=== PATIENT | male | born 1945 | race Caucasian/White ===

== ENCOUNTER 2018-06-07 12:34 | Emergency (ER) | payer OTHER ==
[2018-06-07] MEDS ORDERED: CYCLOBENZAPRINE 10 MG TAB ONE (13:54)
[2018-06-07] MEDS ORDERED: HYDROCODONE/APAP 5/325 MG TAB ONE (13:54)
--- NOTE | 2018-06-07 14:23 | RAD REPORT ---
EXAM DESCRIPTION: CT - Head C Spine Cap Wo Con - 06/07/2018 2:02 pm CLINICAL HISTORY: Fall 5 days earlier, head, neck, chest and abdomen pain, pain primarily lower back and left hip COMPARISON: None. TECHNIQUE: Axial [address] head images were obtained. Axial [address] cervical spine images were obtain ed with sagittal and coronal reconstruction images reviewed. Axial 5 mm images of the chest, abdomen and pelvis were obtained. All CT scans are performed using dose optimization technique as appropriate and may include automated exposure control or mA/KV adjustment according to patient size. FINDINGS: No epidural or subdural hematoma. Punctate curvilinear focus in the deep margin of the lef t central or precentral sulcus is identified. This is potentially a small amount of subarachnoid hemo rrhage as a remnant of the fall. As a finding 5 days after injury, this is not regarded as significan t. No cortical edema or sulcal effacement. No midline shift. No abnormal extra-axial fluid collection . Mastoid air cells and paranasal sinuses are clear. No skull fracture. Atrophy and chronic ischemic changes are minimal. Ventricles are in proportion. Cervical bodies are normal in height and alignment. No fracture or acute bone finding.C5-6 and C6-7 d isc space narrowing and endplate spurring changes are present. Significant facet degenerative change and uncovertebral joint hypertrophy noted. There is bilateral mild foraminal stenosis at C2-3 and C3- 4. Advanced degenerative change cause significant bilateral foraminal stenosis at C4-5 and C5-6. Mode rate stenosis of the foramina at C6-7. Central spinal stenosis present at C5-6.No prevertebral soft t issue thickening or paraspinal mass.Central canal detail is inherently limited on CT imaging. CT chest shows no pneumothorax, pulmonary contusion or pleural fluid collection. No mediastinal hem atoma and the aorta and pulmonary arteries are unremarkable. No chest will mass or abnormal axillary finding. No displaced rib fracture or other significant bony finding. CT abdomen and pelvis show no injury to solid abdominal viscera. Gallbladder and biliary tree are unr emarkable. No bowel injury or significant finding. No free air, free fluid or abnormal stranding. No hernia, mass or bulky lymphadenopathy. No urinary bladder abnormality. Incidental note made of renal cysts. An enlarged lobulated prostate gland is present. Prominent endplate spurring changes seen in the mid and lower thoracic spine with bridging ossificati on. No fracture or acute component. T5-6 and T6-7 disc space narrowing seen. Patient is a very slight loss in height in the superior endplate L2. Imaging findings favor this to be chronic. Patient has d egenerative change throughout the thoracic and lumbar spine. Spinal stenosis at L4-5 is evident. IMPRESSION: No epidural or subdural hematoma. No clinically relevant intracranial hemorrhage. Atroph y and chronic ischemic changes are minimal. Prominent cervical spine degenerative change present with multilevel foraminal stenosis and central s chandler stenosis at C5-6. No pneumothorax, pulmonary contusion or acute CT chest finding. No acute traumatic injury to the soft tissues of the abdomen and pelvis. Minimal loss in height superior endplate L2. This is probably chronic. The patient has extensive bony degenerative change. Given the patient pain pattern, followup MR imaging could be performed to evalu ate for any active marrow in the L2 body.
--- NOTE | 2018-06-07 14:47 | ER ---
Nurse's Notes [facility] Name: Mani Garibay Age: 73 yrs Sex: Male : 1945 Arrival Date: 06/07/2018 Time: 12:36 Bed 30 Private MD: Alvin Whalen Diagnosis: Fall (on) (from) other stairs and steps;Chest wall contusion;Pain in left hip;Low back pain Presentation: 06/07 12:43 Presenting complaint: Patient states: Fell 12 ft off of ladder 5 days ago. Denies LOC. aj Reports pain to left hip and lower back. Bruise to right chest. Ambulated in to triage with limp. Transition of care: patient was not received from another setting of care. Onset of symptoms was June 02, 2018. Risk Assessment: Do you want to hurt yourself or someone else? Patient reports no desire to harm self or others. Initial Sepsis Screen: Does the patient meet any 2 criteria? No. Patient's initial sepsis screen is negative. Does the patient have a suspected source of infection? No. Patient's initial sepsis screen is negative. Care prior to arrival: None. 12:43 Method Of Arrival: Ambulatory 12:43 Acuity: KALEY 3 aj Triage Assessment: 12:46 General: Appears in no apparent distress. comfortable, Behavior is calm, cooperative, aj appropriate for age. Pain: Complains of pain in low back area, mid back area and left hip. Neuro: Level of Consciousness is awake, alert, obeys commands, Oriented to person, place, time, situation, Appropriate for age. Respiratory: Airway is patent Respiratory effort is even, unlabored, Respiratory pattern is regular, symmetrical. Derm: Skin is intact, is healthy with good turgor, Skin is pink, warm \T\ dry. normal. Historical: - Allergies: 12:46 No Known Allergies; aj - Home Meds: 12:46 gabapentin oral oral [Active]; amlodipine oral [Active]; atorvastatin oral oral aj [Active]; Atenolol Oral [Active]; losartan oral oral [Active]; Glimepiride Oral [Active]; Insulin: Novolin R Sub-Q [Active]; - PMHx: 12:46 Diabetes - IDDM; Hyperlipidemia; Hypertension; aj - PSHx: 12:46 Appendectomy; aj - Immunization history:: Adult Immunizations up to date. - Social history:: Smoking status: Patient/guardian denies using tobacco. - Ebola Screening: : Patient negative for fever greater than or equal to 101.5 degrees Fahrenheit, and additional compatible Ebola Virus Disease symptoms Patient denies exposure to infectious person Patient denies travel to an Ebola-affected area in the 21 days before illness onset No symptoms or risks identified at this time. Screenin:08 Abuse screen: Denies threats or abuse. Denies injuries from another. Nutritional ed1 screening: No deficits noted. Tuberculosis screening: No symptoms or risk factors identified. Fall Risk None identified. Assessment: 13:08 General: Appears uncomfortable, Behavior is calm, cooperative. Pain: Complains of pain ed1 in left hip and low back area Pain does not radiate. Pain currently is 6 out of 10 on a pain scale. Quality of pain is described as aching, throbbing, Pain began 2-3 days ago. Is continuous, Aggravated by increased activity, weight bearing. Neuro: Level of Consciousness is awake, alert, obeys commands, Oriented to person, place, time, situation. Cardiovascular: Denies chest pain, Heart tones S1 S2 present. Respiratory: Airway is patent Respiratory effort is even, unlabored, Respiratory pattern is regular, symmetrical, Breath sounds are clear bilaterally. GI: No signs and/or symptoms were reported involving the gastrointestinal system. : No signs and/or symptoms were reported regarding the genitourinary system. EENT: No signs and/or symptoms were reported regarding the EENT system. Derm: Skin is pink, warm \T\ dry. Musculoskeletal: Circulation, motion, and sensation intact. Capillary refill < 3 seconds, in bilateral fingers. Range of motion: intact in all extremities, Swelling absent Reports pain in left hip and low back area. 13:15 General: The previous assessment is accurate. Call light remains within reach. . ss 13:37 Reassessment: Patient appears in no apparent distress at this time. No changes from ed1 previously documented assessment. Patient and/or family updated on plan of care and expected duration. Pain level reassessed. Patient is alert, oriented x 3, equal unlabored respirations, skin warm/dry/pink. Patient states symptoms have not improved. Vital Signs: 12:46 BP 164 / 86; Pulse 69; Resp 19; Temp 97.9; Pulse Ox 98% on R/A; Weight 99.79 kg; Height aj 6 ft. 0 in. (182.88 cm); 13:37 BP 158 / 74; Pulse 65; Resp 17; Temp 98.1(O); Pulse Ox 99% on R/A; Pain 6/10; ed1 14:48 BP 160 / 85; Pulse 51; Pulse Ox 98% on R/A; rv 12:46 Body Mass Index 29.84 (99.79 kg, 182.88 cm) aj ED Course: 12:36 Patient arrived in ED. as 12:36 Alvin Whalen MD is Private Physician. as 12:45 Triage completed. aj 12:46 Arm band placed on left wrist. Patient placed in an exam room. aj 13:06 Lien Nicholas LVN is Primary Nurse. ed1 13:08 Awaiting ED provider evaluation. ed1 13:08 Patient has correct armband on for positive identification. Placed in gown. Bed in low ed1 position. Call light in reach. Side rails up X 1. Adult w/ patient. Warm blanket given. 13:34 Lauren Owusu FNP-C is PHCP. snw 13:34 Ronnie Walden MD is Attending Physician. snw 14:03 CT Traumagram (Head C Spine CAP wo con) In Process Unspecified. EDSD 14:44 Alvin Whalen MD is Referral Physician. snw 14:47 Report given to KRISTA Alvarez. ed1 14:53 No provider procedures requiring assistance completed. Patient did not have IV access rv during this emergency room visit. Administered Medications: 13:52 Drug: [place] 5 mg-325 mg 1 tabs Route: PO; ed1 14:54 Follow up: Response: No adverse reaction; Pain is decreased rv 13:52 Drug: Flexeril 10 mg Route: PO; ed1 14:54 Follow up: Response: No adverse reaction; Pain is decreased rv Outcome: 14:46 Discharge ordered by . snw 14:53 Discharged to home ambulatory. rv 14:53 Condition: improved 14:53 Discharge instructions given to patient, Instructed on discharge instructions, follow up and referral plans. medication usage, Prescriptions given X 2. 14:55 Patient left the ED. rv Signatures: Dispatcher [employer] Karen Pabon RN RN Lauren Cash, SUPERVISING PRODUCER-C SUPERVISING PRODUCER-Csnw Shannon Munson Shelby, RN RN ss Lien Nicholas, MANAGER MARKETING COMMUNICATIONS MANAGER MARKETING COMMUNICATIONS ed1 Hawk Bonilla, RN RN rv
--- NOTE | 2018-06-07 14:47 | EDPHYS ---
Physician Documentation [facility] Name: Mani Garibay Age: 73 yrs Sex: Male : 1945 Arrival Date: 06/07/2018 Time: 12:36 Bed 30 Private MD: Alvin Whalen ED Physician Ronnie Walden HPI: 06/07 13:56 This 73 yrs old Male presents to ER via Ambulatory with complaints of Hip snw Pain. 13:56 The patient or guardian reports an injury, pain. that occurred outdoors, sustained from snw a fall, from 12ft ladder, There is no obvious deformity, The patient is able to self ambulate. The patient is able to bear partial body weight. There is no radiation of the patient's discomfort. The complaints affect the abrasion to occiput, ecchymosis to right breast area, pain to left hip and lower back. Onset: The symptoms/episode began/occurred suddenly, 6 day(s) ago, and became worse and became persistent. Associated signs and symptoms: Loss of consciousness: the patient experienced no loss of consciousness. Severity of symptoms: At their worst the symptoms were moderate. The patient has not experienced similar symptoms in the past. It is unknown whether or not the patient has recently seen a physician. Historical: - Allergies: 12:46 No Known Allergies; aj - Home Meds: 12:46 gabapentin oral oral [Active]; amlodipine oral [Active]; atorvastatin oral oral aj [Active]; Atenolol Oral [Active]; losartan oral oral [Active]; Glimepiride Oral [Active]; Insulin: Novolin R Sub-Q [Active]; - PMHx: 12:46 Diabetes - IDDM; Hyperlipidemia; Hypertension; aj - PSHx: 12:46 Appendectomy; aj - Immunization history:: Adult Immunizations up to date. - Social history:: Smoking status: Patient/guardian denies using tobacco. - Ebola Screening: : Patient negative for fever greater than or equal to 101.5 degrees Fahrenheit, and additional compatible Ebola Virus Disease symptoms Patient denies exposure to infectious person Patient denies travel to an Ebola-affected area in the 21 days before illness onset No symptoms or risks identified at this time. ROS: 13:52 Constitutional: Negative for fever, chills, and weight loss, Eyes: Negative for injury, snw pain, redness, and discharge, ENT: Negative for injury, pain, and discharge, Neck: Negative for injury, pain, and swelling, Cardiovascular: Negative for chest pain, palpitations, and edema, Respiratory: Negative for shortness of breath, cough, wheezing, and pleuritic chest pain, Abdomen/GI: Negative for abdominal pain, nausea, vomiting, diarrhea, and constipation, Back: Negative for injury and pain, : Negative for injury, bleeding, discharge, and swelling, Neuro: Negative for headache, weakness, numbness, tingling, and seizure. 13:52 MS/extremity: Positive for injury or acute deformity, contusion, ecchymosis, of the right breast, pain to left hip. Exam: 13:48 Constitutional: This is a well developed, well nourished patient who is awake, alert, snw and in no acute distress. 13:48 Eyes: Pupils equal round and reactive to light, extra-ocular motions intact. Lids and lashes normal. Conjunctiva and sclera are non-icteric and not injected. Cornea within normal limits. Periorbital areas with no swelling, redness, or edema. ENT: Nares patent. No nasal discharge, no septal abnormalities noted. Tympanic membranes are normal and external auditory canals are clear. Oropharynx with no redness, swelling, or masses, exudates, or evidence of obstruction, uvula midline. Mucous membranes moist. Neck: Trachea midline, no thyromegaly or masses palpated, and no cervical lymphadenopathy. Supple, full range of motion without nuchal rigidity, or vertebral point tenderness. No Meningismus. Chest/axilla: Normal chest wall appearance and motion. Nontender with no deformity. No lesions are appreciated. Cardiovascular: Regular rate and rhythm with a normal S1 and S2. No gallops, murmurs, or rubs. Normal PMI, no JVD. No pulse deficits. Respiratory: Lungs have equal breath sounds bilaterally, clear to auscultation and percussion. No rales, rhonchi or wheezes noted. No increased work of breathing, no retractions or nasal flaring. Abdomen/GI: Soft, non-tender, with normal bowel sounds. No distension or tympany. No guarding or rebound. No evidence of tenderness throughout. Back: No spinal tenderness. No costovertebral tenderness. Full range of motion. 13:48 Neuro: Awake and alert, GCS 15, oriented to person, place, time, and situation. Cranial nerves II-XII grossly intact. Motor strength 5/5 in all extremities. Sensory grossly intact. Cerebellar exam normal. Normal gait. 13:48 Head/face: Noted is a laceration(s), that is linear, 2 cm(s), of the posterior occiput. 13:48 Musculoskeletal/extremity: ROM: no acute changes, Circulation is intact in all extremities. Sensation intact. Weight bearing: able to fully bear weight, pain to left hip on ambulation/wt bearing. 13:48 Skin: injury, contusion(s), that are deep, of the right breast. Vital Signs: 12:46 BP 164 / 86; Pulse 69; Resp 19; Temp 97.9; Pulse Ox 98% on R/A; Weight 99.79 kg; Height aj 6 ft. 0 in. (182.88 cm); 13:37 BP 158 / 74; Pulse 65; Resp 17; Temp 98.1(O); Pulse Ox 99% on R/A; Pain 6/10; ed1 14:48 BP 160 / 85; Pulse 51; Pulse Ox 98% on R/A; rv 12:46 Body Mass Index 29.84 (99.79 kg, 182.88 cm) aj MDM: 13:37 Patient medically screened. snw 14:49 Data reviewed: vital signs, nurses notes. Data interpreted: Pulse oximetry: on room air snw is 99 %. Interpretation: normal. Counseling: I had a detailed discussion with the patient and/or guardian regarding: the historical points, exam findings, and any diagnostic results supporting the discharge/admit diagnosis, the presence of at least one elevated blood pressure reading (>120/80) during this emergency department visit, radiology results, the need for outpatient follow up, to return to the emergency department if symptoms worsen or persist or if there are any questions or concerns that arise at home. Special discussion: Based on the patient's history, exam, and Dx evaluation, there is no indication for emergent intervention or inpatient Tx. It is understood by the patient/guardian that if the Sx's persist or worsen they need to return immediately for re-evaluation. Based on the patient's history, exam and DX evaluation, there is no indication for emergent intervention or inpatient TX. It is understood by the patient/guardian that if the SXs persist or worsen they need to return immediately for re-evaluation. Based on the history and exam findings, there is no indication for further emergent testing or inpatient evaluation. I discussed with the patient/guardian the need to see the primary care provider for further evaluation of the symptoms. 15:10 ED course: Discussed CT findings and plan of care with Dr. Walden. Agrees with plan. snw 06/07 13:36 Order name: CT Traumagram (Head C Spine CAP wo con); Complete Time: 14:33 snw Administered Medications: 13:52 Drug: [place] 5 mg-325 mg 1 tabs Route: PO; ed1 14:54 Follow up: Response: No adverse reaction; Pain is decreased rv 13:52 Drug: Flexeril 10 mg Route: PO; ed1 14:54 Follow up: Response: No adverse reaction; Pain is decreased rv Disposition: 16:18 Co-signature as Attending Physician, Ronnie Walden MD I agree with the assessment and kdr plan of care. Disposition: 06/07/18 14:46 Discharged to Home. Impression: Fall (on) (from) other stairs and steps, Chest wall contusion, Pain in left hip, Low back pain. - Condition is Stable. - Discharge Instructions: Back Pain, Adult, Fall Prevention in the Home, Hypertension, Musculoskeletal Pain, Hip Pain, Cryotherapy, Rehydration, Adult, Heat Therapy. - Prescriptions for Tylenol- Codeine #3 300-30 mg Oral Tablet - take 2 tablets by ORAL route every 6 hours As needed; 20 tablet. orphenadrine citrate 100 mg Oral Tablet Sustained Release - take 1 tablet by ORAL route 2 times per day As needed; 20 tablet. - Medication Reconciliation Form, Thank You Letter, Antibiotic Education, Prescription Opioid Use form. - Follow up: Alvin Whalen MD; When: 2 - 3 days; Reason: Recheck today's complaints, Continuance of care, Re-evaluation by your physician. Follow up: Emergency Department; When: As needed; Reason: Worsening of condition. Signatures: Dispatcher [employer] EDMS Karen Guthrie RN RN aj Rittger, Kevin, MD MD kdr Therrien, Shelly, CARTON CATCHER-C CARTON CATCHER-Csnw Lien Nicholas, POINT OF SALE ASSOCIATE POINT OF SALE ASSOCIATE ed1 Hawk Bonilla, RN RN rv Corrections: (The following items were deleted from the chart) 14:55 14:46 06/07/2018 14:46 Discharged to Home. Impression: Fall (on) (from) other stairs rv and steps; Chest wall contusion; Pain in left hip; Low back pain. Condition is Stable. Forms are Medication Reconciliation Form, Thank You Letter, Antibiotic Education, Prescription Opioid Use. Follow up: Alvin Whalen; When: 2 - 3 days; Reason: Recheck today's complaints, Continuance of care, Re-evaluation by your physician. Follow up: Emergency Department; When: As needed; Reason: Worsening of condition. snw
== END 2018-06-07 14:55 | disposition home or self-care (01) ==
LOC: ER 12:34
DX: S20.211A Contusion of right front wall of thorax, initial encounter (principal); M54.5 Low back pain; W11.XXXA Fall on and from ladder, initial encounter; Y93.89 Activity, other specified; Y92.89 Other specified places as the place of occurrence of the external cause; Z79.4 Long term (current) use of insulin; I10 Essential (primary) hypertension; E78.5 Hyperlipidemia, unspecified; E11.9 Type 2 diabetes mellitus without complications
CPT/HCPCS: 70450; 71250; 72125; 99283

== ENCOUNTER 2019-09-03 06:49 | Emergency (ER) | payer OTHER ==
[2019-09-03] MEDS ORDERED: KETOROLAC 30 MG/ML INJ ONE (07:51)
[2019-09-03] MEDS ORDERED: NA CHLORIDE 0.9% 500 ML ONE (07:52)
[2019-09-03 08:07] LABS: Basophils % 0.6 % (0-1.3); Hematocrit 32.7 % (39.6-49.0); Lymphocytes % 5.9 % (15.3-44.8); MPV 7.8 fL (7.6-11.3); RBC Red Blood Cell Count 3.69 M/uL (4.33-5.43)
[2019-09-03 08:28] LABS: Albumin 2.5 g/dL (3.4-5.0); Bilirubin Direct 0.2 mg/dL (0-0.2); Bilirubin Total 0.5 mg/dL (0.2-1.0); Potassium 4.9 mmol/L (3.5-5.1); Protein, Total 7.6 g/dL (6.4-8.2)
--- NOTE | 2019-09-03 08:37 | RAD REPORT ---
EXAM DESCRIPTION: US - Scrotum Testicles - 09/03/2019 8:10 am CLINICAL HISTORY: Right scrotal pain and swelling COMPARISON: No comparisons FINDINGS: The right testicle 4.0 x 3.3 x 2.7 cm. No intratesticular masses or evidence of testicular torsion. The left testicle 3.0 x 2.8 x 2.4 cm. No intratesticular masses or evidence of testicular torsion. Right epididymis appears enlarged with increase right-sided epididymal blood flow. Left epididymis is unremarkable. No pathologic fluid collections. IMPRESSION: Right epididymitis is suspected.
[2019-09-03] MEDS ORDERED: levoFLOXacin 500 MG TAB ONE (08:39)
--- NOTE | 2019-09-03 08:53 | ER ---
Nurse's Notes [facility] Name: Mani Garibay Age: 74 yrs Sex: Male : 1945 Arrival Date: 09/03/2019 Time: 06:50 Bed 15 Private MD: Diagnosis: Epididymitis Presentation: 09/03 07:10 Presenting complaint: states: pt c/o pain to lower backafter falling off a ladder ch one year ago. pt has appt with pain management Friday. constipation for four weeks. took a stool sophener and it "exploded out of him" yesterday. since then his R testicle has been swollen and painful. Also he isnt peeing. its just little at a time. Transition of care: patient was not received from another setting of care. Onset of symptoms was September 02, 2019 at 08:00. Risk Assessment: Do you want to hurt yourself or someone else? Patient reports no desire to harm self or others. Initial Sepsis Screen: Does the patient meet any 2 criteria? No. Patient's initial sepsis screen is negative. Does the patient have a suspected source of infection? No. Patient's initial sepsis screen is negative. Care prior to arrival: None. 07:10 Method Of Arrival: Wheelchair ch 07:10 Acuity: KALEY 3 ch Triage Assessment: 07:15 General: Appears in no apparent distress. uncomfortable, Behavior is calm, cooperative, ch appropriate for age. Pain: Complains of pain in back and right testicle Pain currently is 5 out of 10 on a pain scale. Pain began gradually, 1 day ago. 07:58 Neuro: No deficits noted. Respiratory: Airway is patent Respiratory effort is even, ch unlabored, Breath sounds are clear bilaterally. GI: Abdomen is round non-distended, Bowel sounds present X 4 quads. Abd is soft and non tender X 4 quads. Reports bloating, constipation. : Swelling noted on scrotum pt R testicle is 2-3 times larger than his left. skin color is the same, R testicle is sore. Reports decrease in urination. Derm: Skin is intact, Skin is pink, warm \\T\\ dry. Musculoskeletal: Circulation, motion, and sensation intact. Capillary refill < 3 seconds, in bilateral fingers. toes. Range of motion: intact in all extremities, Reports back pain since fall off ladder. lower back "always hurts.". Historical: - Allergies: 07:15 No Known Allergies; ch - Home Meds: 07:15 montelukast 10 mg oral tab 1 tab once daily [Active]; cetirizine 10 mg oral tab 1 tab ch once daily [Active]; atorvastatin 40 mg oral tab 1 tab once daily [Active]; gabapentin 600 mg oral tab 1 tab 3 times per day [Active]; omeprazole 40 mg Oral cpDR 1 cap once daily [Active]; amlodipine 10 mg tab 1 tab once daily [Active]; 07:18 hydralazine 50 mg Oral tab 1 tab 2 times per day [Active]; losartan-hydrochlorothiazide ch 100-12.5 mg oral tab 1 tab once daily [Active]; atenolol 100 mg Oral tab 1 tab once daily [Active]; Humulin 70/30 100 unit/mL (70-30) Sub-Q susp [Active]; - 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 - Social history:: Smoking status: Patient/guardian denies using tobacco. - Ebola Screening: : Patient negative for fever greater than or equal to 101.5 degrees Fahrenheit, and additional compatible Ebola Virus Disease symptoms Patient denies exposure to infectious person Patient denies travel to an Ebola-affected area in the 21 days before illness onset No symptoms or risks identified at this time. Screenin:03 Abuse screen: Denies threats or abuse. Denies injuries from another. Nutritional ch screening: No deficits noted. Tuberculosis screening: No symptoms or risk factors identified. Fall Risk None identified. Assessment: 08:02 Reassessment: Patient appears in no apparent distress at this time. No changes from previously documented assessment. Patient and/or family updated on plan of care and expected duration. Pain level reassessed. Patient is alert, oriented x 3, equal unlabored respirations, skin warm/dry/pink. 08:16 Reassessment: pt oob to restroom, ambulatory, gait steady. pt states he feels a little ch better but not much. awaiting results now. 08:44 Reassessment: Patient appears in no apparent distress at this time. Patient and/or ch family updated on plan of care and expected duration. Pain level reassessed. Patient is alert, oriented x 3, equal unlabored respirations, skin warm/dry/pink. Patient denies pain at this time. Neuro: No deficits noted. Neuro: Level of Consciousness is awake, alert, obeys commands, Oriented to person, place, time, situation, Specialty Department Supervisor are equal bilaterally Moves all extremities. Full function Gait is steady, Speech is normal, Facial symmetry appears normal, Facial symmetry: tongue is midline, Pupils are PERRLA, Denies weakness blurred vision dizziness, difficulty swallowing, paresthesias numbness headache photophobia diplopia. Respiratory: No deficits noted. 09:01 Reassessment: Patient appears in no apparent distress at this time. Patient and/or ch family updated on plan of care and expected duration. Pain level reassessed. Patient is alert, oriented x 3, equal unlabored respirations, skin warm/dry/pink. Patient states feeling better. Patient states symptoms have improved. Vital Signs: 07:20 BP 119 / 78; Pulse 84; Resp 16; Temp 99.1(O); Pulse Ox 97% on R/A; Weight 99.79 kg; ch Height 6 ft. (182.88 cm); Pain 5/10; 08:03 BP 106 / 72; Pulse 64; Resp 17; Temp 99.2(O); Pulse Ox 100% on R/A; ch 08:44 BP 112 / 62; Pulse 61; Resp 17; Temp 99(O); Pulse Ox 99% on R/A; Pain 4/10; ch 07:20 Body Mass Index 29.84 (99.79 kg, 182.88 cm) ED Course: 06:50 Patient arrived in ED. ds1 06:58 Tanya Mays, KRISTA is Primary Nurse. ch 07:09 Ronnie Walden MD is Attending Physician. kdr 07:13 Triage completed. 07:20 Arm band placed on left wrist. Patient placed in an exam room, on a stretcher, on pulse oximetry. 07:50 No provider procedures requiring assistance completed. Inserted saline lock: 18 gauge ch in right forearm, using aseptic technique. Blood collected. Missed attempt(s): 18 gauge in right forearm. Bleeding controlled, band aid applied, catheter tip intact. 07:56 Basic Metabolic Panel Sent. ch 07:56 CBC with Diff Sent. ch 07:56 Creatinine for Radiology Sent. ch 07:56 Hepatic Function Sent. ch 07:56 Lipase Sent. ch 08:03 Patient has correct armband on for positive identification. Bed in low position. Call light in reach. Side rails up X 1. Adult w/ patient. Pulse ox on. NIBP on. Door closed. Noise minimized. Visitors limited. Warm blanket given. Pillow given. Verbal reassurance given. 08:04 No apparent distress. Resting quietly. US at bedside now. ch 08:10 US Scrotum Testicles In Process Unspecified. EDMS 09:02 IV discontinued, intact, bleeding controlled, No redness/swelling at site. Pressure ch dressing applied. Administered Medications: 07:57 Drug: NS 0.9% 500 ml Route: IV; Rate: bolus; Site: right forearm; ch 08:17 Follow up: Response: No adverse reaction; IV Status: Completed infusion 07:58 Drug: TORadol - Ketorolac 15 mg Route: IVP; Site: right forearm; ch 08:17 Follow up: Response: No adverse reaction; Pain is decreased ch 08:45 Drug: LevaQUIN 500 mg Route: PO; Outcome: 08:53 Discharge ordered by . [facility] 09:01 Discharged to home ambulatory, with family. 09:01 Condition: stable 09:01 Discharge instructions given to patient, family, Instructed on discharge instructions, follow up and referral plans. medication usage, Demonstrated understanding of instructions, follow-up care, medications, Prescriptions given X 1. 09:02 Patient left the ED. Signatures: Dispatcher [employer] EDUT Tanya Mays, RN RN Ronnie Walden MD MD [facility] Lurdes Lopez ds1 Corrections: (The following items were deleted from the chart) 08:01 07:58 General: Appears in no apparent distress. uncomfortable, Behavior is calm, ch cooperative, appropriate for age, ch 08:01 07:58 Pain: Complains of pain in back and right testicle Pain currently is 5 out of 10 ch on a pain scale. Pain began gradually, 1 day ago.
--- NOTE | 2019-09-03 08:53 | EDPHYS ---
Physician Documentation [facility] Name: Mani Garibay Age: 74 yrs Sex: Male : 1945 Arrival Date: 09/03/2019 Time: 06:50 Bed 15 Private MD: ED Physician Ronnie Walden HPI: 09/03 07:50 This 74 yrs old Male presents to ER via Wheelchair with complaints of kdr Testicular Swelling, Back Pain, Constipation. 07:50 The patient presents with scrotal pain, of the right side, in the area of the kdr epidydimis, with swelling, without erythema, swelling, that is moderate, of the right testicle, tenderness, urinary symptoms, dysuria, urinary frequency. Onset: The symptoms/episode began/occurred The patient has felt poorly over the last few days. Two days ago, he flet hot and had shaking chills and rigors which have since resolved. Since then he has had increased pain and swelling to the right testicle. He has also had constipation - took a stool softener and had a large "explosive" BM. Modifying factors: The symptoms are alleviated by nothing, the symptoms are aggravated by nothing. Severity of symptoms: At their worst the symptoms were mild, in the emergency department the symptoms are unchanged. The patient has not experienced similar symptoms in the past. The patient has not recently seen a physician. Historical: - Allergies: 07:15 No Known Allergies; ch - Home Meds: 07:15 montelukast 10 mg oral tab 1 tab once daily [Active]; cetirizine 10 mg oral tab 1 tab ch once daily [Active]; atorvastatin 40 mg oral tab 1 tab once daily [Active]; gabapentin 600 mg oral tab 1 tab 3 times per day [Active]; omeprazole 40 mg Oral cpDR 1 cap once daily [Active]; amlodipine 10 mg tab 1 tab once daily [Active]; 07:18 hydralazine 50 mg Oral tab 1 tab 2 times per day [Active]; losartan-hydrochlorothiazide ch 100-12.5 mg oral tab 1 tab once daily [Active]; atenolol 100 mg Oral tab 1 tab once daily [Active]; Humulin 70/30 100 unit/mL (70-30) Sub-Q susp [Active]; - 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 - Social history:: Smoking status: Patient/guardian denies using tobacco. - Ebola Screening: : Patient negative for fever greater than or equal to 101.5 degrees Fahrenheit, and additional compatible Ebola Virus Disease symptoms Patient denies exposure to infectious person Patient denies travel to an Ebola-affected area in the 21 days before illness onset No symptoms or risks identified at this time. ROS: 07:50 Constitutional: Negative for fever, chills, and weight loss, Eyes: Negative for injury, kdr pain, redness, and discharge, Neck: Negative for injury, pain, and swelling, Cardiovascular: Negative for chest pain, palpitations, and edema, Respiratory: Negative for shortness of breath, cough, wheezing, and pleuritic chest pain, Abdomen/GI: Negative for abdominal pain, nausea, vomiting, diarrhea, and constipation, Back: Negative for injury and pain, MS/Extremity: Negative for injury and deformity, Skin: Negative for injury, rash, and discoloration, Neuro: Negative for headache, weakness, numbness, tingling, and seizure activity. Psych: Negative for depression, anxiety, suicide ideation, homicidal ideation, and hallucinations, Allergy/Immunology: Negative for hives, rash, and allergies, Endocrine: Negative for neck swelling, polydipsia, polyuria, polyphagia, and marked weight changes, Hematologic/Lymphatic: Negative for swollen nodes, abnormal bleeding, and unusual bruising. 07:50 : Positive for urinary symptoms, difficulty urinating, testicular pain Negative for hematuria, flank pain, bladder incontinence, foul smelling urine, penile discharge. Exam: 07:50 Constitutional: This is a well developed, well nourished patient who is awake, alert, kdr and in no acute distress. Head/Face: Normocephalic, atraumatic. Eyes: Pupils equal round and reactive to light, extra-ocular motions intact. Lids and lashes normal. Conjunctiva and sclera are non-icteric and not injected. Cornea within normal limits. Periorbital areas with no swelling, redness, or edema. Neck: Trachea midline, no thyromegaly or masses palpated, and no cervical lymphadenopathy. Supple, full range of motion without nuchal rigidity, or vertebral point tenderness. No Meningismus. Chest/axilla: Normal chest wall appearance and motion. Nontender with no deformity. No lesions are appreciated. Cardiovascular: Regular rate and rhythm with a normal S1 and S2. No gallops, murmurs, or rubs. Normal PMI, no JVD. No pulse deficits. Respiratory: Lungs have equal breath sounds bilaterally, clear to auscultation and percussion. No rales, rhonchi or wheezes noted. No increased work of breathing, no retractions or nasal flaring. Abdomen/GI: Soft, non-tender, with normal bowel sounds. No distension or tympany. No guarding or rebound. No evidence of tenderness throughout. Back: No spinal tenderness. No costovertebral tenderness. Full range of motion. Skin: Warm, dry with normal turgor. Normal color with no rashes, no lesions, and no evidence of cellulitis. MS/ Extremity: Pulses equal, no cyanosis. Neurovascular intact. Full, normal range of motion. Neuro: Awake and alert, GCS 15, oriented to person, place, time, and situation. Cranial nerves II-XII grossly intact. Motor strength 5/5 in all extremities. Sensory grossly intact. Cerebellar exam normal. Normal gait. Psych: Awake, alert, with orientation to person, place and time. Behavior, mood, and affect are within normal limits. 07:50 : CVA tenderness, is absent, Male external genitalia: swelling, of the right testicle is noted, scrotal, testicle, of the epididymis area, that is mild, tenderness, of the epididymis area, that is mild. Vital Signs: 07:20 BP 119 / 78; Pulse 84; Resp 16; Temp 99.1(O); Pulse Ox 97% on R/A; Weight 99.79 kg; ch Height 6 ft. (182.88 cm); Pain 5/10; 08:03 BP 106 / 72; Pulse 64; Resp 17; Temp 99.2(O); Pulse Ox 100% on R/A; ch 08:44 BP 112 / 62; Pulse 61; Resp 17; Temp 99(O); Pulse Ox 99% on R/A; Pain 4/10; ch 07:20 Body Mass Index 29.84 (99.79 kg, 182.88 cm) ch MDM: 08:53 Patient medically screened. kdr 09:28 Data reviewed: vital signs, nurses notes, lab test result(s), radiologic studies. kdr Special discussion: I discussed with the patient/guardian in detail that at this point there is no indication for admission to the hospital. It is understood, however, that if the symptoms persist or worsen the patient needs to return immediately for re-evaluation. Based on the history and exam findings, there is no indication for further emergent testing or inpatient evaluation. I discussed with the patient/guardian the need to see the urologist for further evaluation of the symptoms. ED course: The patient was completely stable and non-toxic in appearance. Given that he was reliable and his was with him, and felt comfortable with discharge. I indicated that if he worsened in any way, he need to return to the ED. They indicated that they understood and were happy with the care provided and the plan for discharge and follow-up. 09/03 07:27 Order name: Basic Metabolic Panel; Complete Time: 08:32 kdr 09/03 07:27 Order name: CBC with Diff; Complete Time: 08:22 kdr 09/03 07:27 Order name: Creatinine for Radiology; Complete Time: 08:22 kdr 09/03 07:27 Order name: Hepatic Function; Complete Time: 08:32 kdr 09/03 07:27 Order name: Lipase; Complete Time: 08:32 kdr 09/03 08:34 Order name: Urine Dipstick--Ancillary (enter results); Complete Time: 09:31 eb 09/03 07:27 Order name: IV Saline Lock; Complete Time: 07:56 kdr 09/03 07:27 Order name: Labs collected and sent; Complete Time: 07:56 kdr 09/03 07:27 Order name: US Scrotum Testicles; Complete Time: 09:31 kdr Administered Medications: 07:57 Drug: NS 0.9% 500 ml Route: IV; Rate: bolus; Site: right forearm; ch 08:17 Follow up: Response: No adverse reaction; IV Status: Completed infusion ch 07:58 Drug: TORadol - Ketorolac 15 mg Route: IVP; Site: right forearm; ch 08:17 Follow up: Response: No adverse reaction; Pain is decreased ch 08:45 Drug: LevaQUIN 500 mg Route: PO; ch Disposition: 09/03/19 08:53 Discharged to Home. Impression: Epididymitis. - Condition is Stable. - Discharge Instructions: Epididymitis, Testicular Self-Exam. - Prescriptions for Levaquin 500 mg Oral Tablet - take 1 tablet by ORAL route once daily for 9 days; 9 tablet. - Medication Reconciliation Form, Thank You Letter, Antibiotic Education form. - Follow up: Private Physician; When: 2 - 3 days; Reason: If symptoms return, Further diagnostic work-up, Recheck today's complaints, Continuance of care, Re-evaluation by your physician. - Problem is new. - Symptoms have improved. Signatures: Dispatcher [employer] EDTanya Gamez RN RN Ronnie Walden MD MD kdr Corrections: (The following items were deleted from the chart) 09:02 08:53 09/03/2019 08:53 Discharged to Home. Impression: Epididymitis. Condition is Stable. Forms are Medication Reconciliation Form, Thank You Letter, Antibiotic Education, Prescription Opioid Use. Follow up: Private Physician; When: 2 - 3 days; Reason: If symptoms return, Further diagnostic work-up, Recheck today's complaints, Continuance of care, Re-evaluation by your physician. Problem is new. Symptoms have improved. kdr
[2019-09-03 09:09] VITALS: BP 112/62; TEMP 99; O2SAT 99
[2019-09-03 09:29] LABS: Urine Blood TRACE (NEG); Urine Glucose 1+ (NEG); Urine Protein 1+ (NEG); Urine pH 5.5 (5.0-7.0)
== END 2019-09-03 09:02 | disposition home or self-care (01) ==
LOC: ER 06:49
DX: N45.1 Epididymitis (principal); I10 Essential (primary) hypertension; E11.9 Type 2 diabetes mellitus without complications; E78.5 Hyperlipidemia, unspecified; Z79.4 Long term (current) use of insulin
CPT/HCPCS: 36415; 76870; 80048; 80076; 81003; 83690; 85025; 96374; 99284; J7040

== ENCOUNTER 2019-09-04 19:54 | Inpatient (IN) | payer OTHER ==
--- NOTE | 2019-09-04 21:10 | ER ---
Nurse's Notes [facility] Name: Mani Garibay Age: 74 yrs Sex: Male : 1945 Arrival Date: 09/04/2019 Time: 19:57 Bed 23 Private MD: Alvin Whalen Diagnosis: Epididymo-orchitis;Epididymitis;Fever, unspecified;Elevated white blood cell count;Type 1 diabetes mellitus-uncontrolled;Unspecified kidney failure;Urinary tract infection, site not specified;Hyperkalemia Presentation: 09/04 20:00 Presenting complaint: Patient states: "I've been having right testicular swelling and cc3 pain since a couple of days now, I was seen here yesterday morning and was diagnosed with UTI and was prescribed with antibiotics but not helping and still the symptoms persist". Transition of care: patient was not received from another setting of care. Onset of symptoms was September 04, 2019. Risk Assessment: Do you want to hurt yourself or someone else? Patient reports no desire to harm self or others. Initial Sepsis Screen: Does the patient meet any 2 criteria? No. Patient's initial sepsis screen is negative. Does the patient have a suspected source of infection? Yes: Dysuria/Frequency/Urgency/UTI. Care prior to arrival: None. 20:00 Method Of Arrival: Wheelchair cc3 20:00 Acuity: KALEY 3 cc3 Triage Assessment: 20:00 General: Appears in no apparent distress. uncomfortable, Behavior is calm, cooperative, cc3 appropriate for age. Pain: Complains of pain in right scrotum Pain currently is 7 out of 10 on a pain scale. Quality of pain is described as aching. Historical: - Allergies: 20:00 No Known Allergies; cc3 - Home Meds: 20:00 amlodipine 10 mg tab 1 tab once daily [Active]; atenolol 100 mg Oral tab 1 tab once cc3 daily [Active]; atorvastatin 40 mg Oral tab 1 tab once daily [Active]; cetirizine 10 mg Oral tab 1 tab once daily [Active]; gabapentin 600 mg Oral tab 1 tab 3 times per day [Active]; Humulin 70/30 100 unit/mL (70-30) Sub-Q susp [Active]; hydralazine 50 mg Oral tab 1 tab 2 times per day [Active]; losartan-hydrochlorothiazide 100-12.5 mg Oral tab 1 tab once daily [Active]; montelukast 10 mg Oral tab 1 tab once daily [Active]; omeprazole 40 mg Oral cpDR 1 cap once daily [Active]; - PMHx: 20:00 diabetes IDDM; Hyperlipidemia; Hypertension; msra L FA; cc3 - Immunization history:: Adult Immunizations not up to date. - Social history:: Smoking status: Patient/guardian denies using tobacco, never smoked. - Ebola Screening: : No symptoms or risks identified at this time. Screenin:00 Abuse screen: Denies threats or abuse. Denies injuries from another. Nutritional cc3 screening: No deficits noted. Tuberculosis screening: No symptoms or risk factors identified. Fall Risk Ambulatory Aid- None/Bed Rest/Nurse Assist (0 pts). Gait- Normal/Bed Rest/Wheelchair (0 pts) Mental Status- Oriented to own ability (0 pts). Assessment: 21:00 General: Appears in no apparent distress. uncomfortable, Behavior is calm, cooperative. rv 21:00 Pain: Complains of pain in groin and right femoral area. Neuro: Level of Consciousness rv is awake, alert, obeys commands, Oriented to person, place, time, situation. Cardiovascular: Patient's skin is warm and dry. Respiratory: Airway is patent. GI: No signs and/or symptoms were reported involving the gastrointestinal system. : Swelling noted on scrotum Reports burning with urination, pain. EENT: No signs and/or symptoms were reported regarding the EENT system. Derm: Skin is intact. Musculoskeletal: No signs and/or symptoms reported regarding the musculoskeletal system. Vital Signs: 20:00 BP 131 / 75; Pulse 76; Resp 20 S; Temp 97.9(O); Pulse Ox 97% on R/A; Weight 99.79 kg cc3 (R); Height 6 ft. 0 in. (182.88 cm) (R); Pain 7/10; 21:00 BP 132 / 70; Pulse 71; Resp 16; Pulse Ox 96% on R/A; rv 22:00 BP 107 / 56; Pulse 69; Resp 17; Pulse Ox 97% on R/A; rv 22:30 BP 125 / 62; Pulse 68; Resp 14; Pulse Ox 98% on R/A; rv 20:00 Body Mass Index 29.84 (99.79 kg, 182.88 cm) cc3 ED Course: 19:57 Patient arrived in ED. es 19:58 Alvin Whalen MD is Private Physician. es 20:00 Patient has correct armband on for positive identification. Bed in low position. Call cc3 light in reach. Side rails up X2. adjuster piano action on. Pulse ox on. NIBP on. 20:00 Arm band placed on right wrist. Patient notified of wait time. cc3 20:14 Triage completed. cc3 20:16 Jez Curry MD is Attending Physician. jeanne 21:09 Adeel Donovan MD is Hospitalizing Provider. jeanne 21:15 Initial lab(s) drawn, by me, sent to lab. First set of blood cultures drawn by me. lt1 21:25 Inserted saline lock: 20 gauge in right antecubital area, using aseptic technique. lt1 21:36 Chest Single View XRAY In Process Unspecified. EDMS 21:37 EKG done, by ED staff. lt1 21:45 Second set of blood cultures drawn by nd. lt1 21:47 Blood Culture Adult (2) Sent. lt1 21:59 Notified ED physician of a critical lab result(s). Glucose of 547. Dr Curry notified.bb 22:07 Ultrasound completed. Patient tolerated well. sg3 22:10 US Scrotum Testicles In Process Unspecified. EDMS 22:15 Urine Culture Sent. lt1 22:35 Hawk Bonilla, KRISTA is Primary Nurse. rv 22:57 No provider procedures requiring assistance completed. Patient admitted, IV remains in rv place. Administered Medications: 22:03 Drug: Zofran 4 mg Route: IVP; Site: right antecubital; ad1 23:18 Follow up: Response: No adverse reaction rv 22:13 Drug: Rocephin 2 grams Route: IV; Rate: per protocol; Site: right antecubital; ad1 22:14 Drug: NS 0.9% 1000 ml Route: IV; Rate: 1 bolus; Site: right antecubital; ad1 23:16 Follow up: IV Status: Completed infusion rv 22:14 Drug: Cipro 400 mg Volume: 200 ml; Route: IVPB; Infused Over: 60 mins; Site: right ad1 antecubital; 22:15 Drug: morphine 2 mg {Note: RASS 0.} Route: IVP; Site: right antecubital; ad1 23:17 Follow up: Response: No adverse reaction; Marked relief of symptoms; Pain is decreased; rv RASS: Alert and Calm (0) 22:36 Drug: Insulin Regular Human 10 units {Co-Signature: zoë (Hawk Bonilla RN).} Route: ad1 Sub-Q; Site: abdomen; 23:14 Follow up: Response: No adverse reaction rv 22:37 Drug: Insulin Regular Human 10 units {Co-Signature: rv (Hawk Bonilla RN).} Route: ad1 IVP; Site: left antecubital; 23:13 Follow up: Response: No adverse reaction rv 22:39 Drug: NS 0.9% 1000 ml Route: IV; Rate: 1 bolus; Site: right antecubital; ad1 23:09 Drug: Insulin Regular Human 10 units {Co-Signature: ad1 (Britney Velasco RN).} Route: IVP; rv Site: right antecubital; 23:14 Follow up: Response: Medication administered at discharge. rv 23:13 Drug: NS 0.9% 1000 ml Route: IV; Rate: 1 bolus; Site: right antecubital; rv 23:14 Follow up: IV Status: Completed infusion rv Outcome: 21:10 Decision to Hospitalize by Provider. jeanne 22:58 Admitted to Tele accompanied by krzysztof, via wheelchair, room 422, with chart, Report rv called to noreen VELASCO 22:58 Condition: good 22:58 Instructed on the need for admit. 23:15 Patient left the ED. rv Signatures: Dispatcher [employer] Jez Murray MD MD cha Salyer, Edna es Ballard, Brenda RN Britney Lakhani RN RN ad1 Shelby Farley 3 Hawk Bonilla RN RN rv Cordel, Charlene 3 Kaela Hernandez 1 Hawk Velasco RN ad1 Corrections: (The following items were deleted from the chart) 22:15 22:03 morphine 2 mg IVP in right antecubital ad1 ad1
--- NOTE | 2019-09-04 21:11 | EDPHYS ---
Physician Documentation [facility] Name: Mani Garibay Age: 74 yrs Sex: Male : 1945 Arrival Date: 09/04/2019 Time: 19:57 Bed 23 Private MD: Alvin Whalen ED Physician Jez Curry HPI: 09/04 21:00 This 74 yrs old Male presents to ER via Wheelchair with complaints of Fever, jeanne UTI. Historical: - Allergies: 20:00 No Known Allergies; cc3 - Home Meds: 20:00 amlodipine 10 mg tab 1 tab once daily [Active]; atenolol 100 mg Oral tab 1 tab once cc3 daily [Active]; atorvastatin 40 mg Oral tab 1 tab once daily [Active]; cetirizine 10 mg Oral tab 1 tab once daily [Active]; gabapentin 600 mg Oral tab 1 tab 3 times per day [Active]; Humulin 70/30 100 unit/mL (70-30) Sub-Q susp [Active]; hydralazine 50 mg Oral tab 1 tab 2 times per day [Active]; losartan-hydrochlorothiazide 100-12.5 mg Oral tab 1 tab once daily [Active]; montelukast 10 mg Oral tab 1 tab once daily [Active]; omeprazole 40 mg Oral cpDR 1 cap once daily [Active]; - PMHx: 20:00 diabetes IDDM; Hyperlipidemia; Hypertension; msra L FA; cc3 - Immunization history:: Adult Immunizations not up to date. - Social history:: Smoking status: Patient/guardian denies using tobacco, never smoked. - Ebola Screening: : No symptoms or risks identified at this time. ROS: 21:01 Constitutional: Negative for fever, chills, and weight loss, Eyes: Negative for injury, jeanne pain, redness, and discharge, ENT: Negative for injury, pain, and discharge, Neck: Negative for injury, pain, and swelling, Cardiovascular: Negative for chest pain, palpitations, and edema, Respiratory: Negative for shortness of breath, cough, wheezing, and pleuritic chest pain, Abdomen/GI: Negative for abdominal pain, nausea, vomiting, diarrhea, and constipation, Back: Negative for injury and pain, MS/Extremity: Negative for injury and deformity, Skin: Negative for injury, rash, and discoloration, Neuro: Negative for headache, weakness, numbness, tingling, and seizure, Psych: Negative for depression, anxiety, suicide ideation, homicidal ideation, and hallucinations, Allergy/Immunology: Negative for hives, rash, and allergies, Endocrine: Negative for neck swelling, polydipsia, polyuria, polyphagia, and marked weight changes, Hematologic/Lymphatic: Negative for swollen nodes, abnormal bleeding, and unusual bruising. 21:01 : Positive for Exam: 21:07 Constitutional: This is a well developed, well nourished patient who is awake, alert, jeanne and in no acute distress. Head/Face: Normocephalic, atraumatic. Eyes: Pupils equal round and reactive to light, extra-ocular motions intact. Lids and lashes normal. Conjunctiva and sclera are non-icteric and not injected. Cornea within normal limits. Periorbital areas with no swelling, redness, or edema. ENT: Nares patent. No nasal discharge, no septal abnormalities noted. Tympanic membranes are normal and external auditory canals are clear. Oropharynx with no redness, swelling, or masses, exudates, or evidence of obstruction, uvula midline. Mucous membranes moist. Neck: Trachea midline, no thyromegaly or masses palpated, and no cervical lymphadenopathy. Supple, full range of motion without nuchal rigidity, or vertebral point tenderness. No Meningismus. Chest/axilla: Normal chest wall appearance and motion. Nontender with no deformity. No lesions are appreciated. Cardiovascular: Regular rate and rhythm with a normal S1 and S2. No gallops, murmurs, or rubs. Normal PMI, no JVD. No pulse deficits. Respiratory: Lungs have equal breath sounds bilaterally, clear to auscultation and percussion. No rales, rhonchi or wheezes noted. No increased work of breathing, no retractions or nasal flaring. Back: No spinal tenderness. No costovertebral tenderness. Full range of motion. Skin: Warm, dry with normal turgor. Normal color with no rashes, no lesions, and no evidence of cellulitis. MS/ Extremity: Pulses equal, no cyanosis. Neurovascular intact. Full, normal range of motion. Neuro: Awake and alert, GCS 15, oriented to person, place, time, and situation. Cranial nerves II-XII grossly intact. Motor strength 5/5 in all extremities. Sensory grossly intact. Cerebellar exam normal. Normal gait. Psych: Awake, alert, with orientation to person, place and time. Behavior, mood, and affect are within normal limits. 21:07 Abdomen/GI: Inspection: distension, Bowel sounds: normal, Palpation: abdomen is soft and non-tender, Liver: no appreciated palpable abnormalities, Hernia: not appreciated. Vital Signs: 20:00 BP 131 / 75; Pulse 76; Resp 20 S; Temp 97.9(O); Pulse Ox 97% on R/A; Weight 99.79 kg cc3 (R); Height 6 ft. 0 in. (182.88 cm) (R); Pain 7/10; 21:00 BP 132 / 70; Pulse 71; Resp 16; Pulse Ox 96% on R/A; rv 22:00 BP 107 / 56; Pulse 69; Resp 17; Pulse Ox 97% on R/A; rv 22:30 BP 125 / 62; Pulse 68; Resp 14; Pulse Ox 98% on R/A; rv 20:00 Body Mass Index 29.84 (99.79 kg, 182.88 cm) cc3 MDM: 20:17 Patient medically screened. [facility] 22:20 Data reviewed: vital signs, nurses notes, lab test result(s), EKG, radiologic studies, [facility] plain films, ultrasound. 09/04 20:59 Order name: Basic Metabolic Panel; Complete Time: 22:16 [facility] 09/04 20:59 Order name: CBC with Diff [facility] 09/04 20:59 Order name: Creatinine for Radiology; Complete Time: 22:16 [facility] 09/04 20:59 Order name: Hepatic Function; Complete Time: 22:16 [facility] 09/04 20:59 Order name: Lipase; Complete Time: 22:16 [facility] 09/04 20:59 Order name: Urine Culture [facility] 09/04 21:07 Order name: Blood Culture Adult (2) [facility] 09/04 21:07 Order name: Lactate; Complete Time: 22:16 [facility] 09/04 21:07 Order name: Procalcitonin; Complete Time: 22:16 [facility] 09/04 21:08 Order name: Urine Dipstick--Ancillary (enter results); Complete Time: 22:16 cm6 09/04 21:34 Order name: Manual Differential EDMS 09/04 22:10 Order name: GC (Mynor/Chl) Probe URINE EDMS 09/04 22:10 Order name: Urinalysis [facility] 09/04 22:10 Order name: CBC with Automated Diff [facility] 09/04 21:00 Order name: Chest Single View XRAY [facility] 09/04 21:12 Order name: US Scrotum Testicles [facility] 09/04 22:10 Order name: CBC with Automated Diff [facility] 09/04 22:10 Order name: Comprehensive Metabolic Panel [facility] 09/04 22:10 Order name: Comprehensive Metabolic Panel [facility] 09/04 22:10 Order name: Magnesium [facility] 09/04 22:10 Order name: Magnesium EDMS 09/04 22:10 Order name: Phosphorus [facility] 09/04 22:10 Order name: Phosphorus [facility] 09/04 22:10 Order name: Protime (+INR) [facility] 09/04 22:10 Order name: Protime (+INR) [facility] 09/04 22:10 Order name: PTT, Activated Partial Thromb [facility] 09/04 22:10 Order name: PTT, Activated Partial Thromb [facility] 09/04 22:15 Order name: Urine Dipstick--Ancillary (enter results) [facility] 09/04 22:18 Order name: Urine Dipstick-Ancillary; Complete Time: 22:19 [facility] 09/04 23:09 Order name: Glucose, Ancillary Testing [facility] 09/04 20:59 Order name: IV Saline Lock; Complete Time: 21:25 [facility] 09/04 20:59 Order name: Labs collected and sent; Complete Time: 21:25 [facility] 09/04 20:59 Order name: Urine Dipstick-Ancillary (obtain specimen); Complete Time: 22:15 [facility] 09/04 21:00 Order name: EKG; Complete Time: 21:02 [facility] 09/04 21:00 Order name: EKG - Nurse/Tech; Complete Time: 21:37 [facility] 09/04 22:10 Order name: Consistent Carb (ADA) 1800 Isaac EDMS Administered Medications: 22:03 Drug: Zofran 4 mg Route: IVP; Site: right antecubital; ad1 23:18 Follow up: Response: No adverse reaction rv 22:13 Drug: Rocephin 2 grams Route: IV; Rate: per protocol; Site: right antecubital; ad1 22:14 Drug: NS 0.9% 1000 ml Route: IV; Rate: 1 bolus; Site: right antecubital; ad1 23:16 Follow up: IV Status: Completed infusion rv 22:14 Drug: Cipro 400 mg Volume: 200 ml; Route: IVPB; Infused Over: 60 mins; Site: right ad1 antecubital; 22:15 Drug: morphine 2 mg {Note: RASS 0.} Route: IVP; Site: right antecubital; ad1 23:17 Follow up: Response: No adverse reaction; Marked relief of symptoms; Pain is decreased; rv RASS: Alert and Calm (0) 22:36 Drug: Insulin Regular Human 10 units {Co-Signature: zoë (Hawk Bonilla RN).} Route: ad1 Sub-Q; Site: abdomen; 23:14 Follow up: Response: No adverse reaction rv 22:37 Drug: Insulin Regular Human 10 units {Co-Signature: zoë (Hawk Bonilla RN).} Route: ad1 IVP; Site: left antecubital; 23:13 Follow up: Response: No adverse reaction rv 22:39 Drug: NS 0.9% 1000 ml Route: IV; Rate: 1 bolus; Site: right antecubital; ad1 23:09 Drug: Insulin Regular Human 10 units {Co-Signature: ad1 (Britney Velasco RN).} Route: IVP; rv Site: right antecubital; 23:14 Follow up: Response: Medication administered at discharge. rv 23:13 Drug: NS 0.9% 1000 ml Route: IV; Rate: 1 bolus; Site: right antecubital; rv 23:14 Follow up: IV Status: Completed infusion rv Disposition: 09/04/19 21:10 Hospitalization ordered by Adeel Donovan for Inpatient Admission. Preliminary diagnosis are Epididymo-orchitis, Epididymitis, Fever, unspecified, Elevated white blood cell count, Type 1 diabetes mellitus - uncontrolled, Unspecified kidney failure, Urinary tract infection, site not specified, Hyperkalemia. - Bed requested for Telemetry/MedSurg (Inpatient). - Status is Inpatient Admission. rv - Condition is Fair. - Problem is new. - Symptoms have improved. UTI on Admission? Yes Signatures: Dispatcher [employer] Jez Murray MD MD cha DelToro, Anna, RN RN ad1 Laureen Blevins RN RN Hawk Bonilla RN RN rv Cordel, Charlene cc3 Hawk Bonilla RN rv Britney Velasco RN ad1 Corrections: (The following items were deleted from the chart) 21:12 21:10 Hospitalization Ordered by Adeel Donovan MD for Inpatient Admission. Preliminary [facility] diagnosis is Epididymo-orchitis; Epididymitis; Fever, unspecified; Elevated white blood cell count. Bed requested for Telemetry/MedSurg (Inpatient). Status is Inpatient Admission. Condition is Fair. Problem is new. Symptoms have improved. UTI on Admission? Yes. [facility] 22:21 21:12 09/04/2019 21:10 Hospitalization Ordered by Adeel Donovan MD for Inpatient jeanne Admission. Preliminary diagnosis is Epididymo-orchitis; Epididymitis; Fever, unspecified; Elevated white blood cell count; Type 1 diabetes mellitus. Bed requested for Telemetry/MedSurg (Inpatient). Status is Inpatient Admission. Condition is Fair. Problem is new. Symptoms have improved. UTI on Admission? Yes. [facility] 22:29 22:21 09/04/2019 21:10 Hospitalization Ordered by Adeel Donovan MD for Inpatient cg Admission. Preliminary diagnosis is Epididymo-orchitis; Epididymitis; Fever, unspecified; Elevated white blood cell count; Type 1 diabetes mellitus - uncontrolled; Unspecified kidney failure; Urinary tract infection, site not specified; Hyperkalemia. Bed requested for Telemetry/MedSurg (Inpatient). Status is Inpatient Admission. Condition is Fair. Problem is new. Symptoms have improved. UTI on Admission? Yes. [facility] 23:15 22:29 09/04/2019 21:10 Hospitalization Ordered by Adeel Donovan MD for Inpatient rv Admission. Preliminary diagnosis is Epididymo-orchitis; Epididymitis; Fever, unspecified; Elevated white blood cell count; Type 1 diabetes mellitus - uncontrolled; Unspecified kidney failure; Urinary tract infection, site not specified; Hyperkalemia. Bed requested for Telemetry/MedSurg (Inpatient). Status is Inpatient Admission. Condition is Fair. Problem is new. Symptoms have improved. UTI on Admission? Yes.
[2019-09-04 21:31] LABS: Basophils % 0.3 % (0-1.3); Hematocrit 35.7 % (39.6-49.0); Lymphocytes % 5.9 % (15.3-44.8); MPV 7.8 fL (7.6-11.3); RBC Red Blood Cell Count 3.91 M/uL (4.33-5.43)
[2019-09-04] MEDS ORDERED: NA CHLORIDE 0.9% 1,000 ML ONE (21:49)
[2019-09-04] MEDS ORDERED: CIPROFLOXACIN 400mg IV 400 MG/200 ML BAG IV ONE (21:49)
[2019-09-04] MEDS ORDERED: CEFTRIAXONE/SWI 1gm 2 GM/20 ML SYR ONE (21:49)
[2019-09-04] MEDS ORDERED: MORPHINE 2 MG/ML SYR ONE (21:49)
[2019-09-04] MEDS ORDERED: ONDANSETRON 4 MG/2 ML VIAL ONE (21:49)
[2019-09-04 21:56] LABS: Albumin 2.3 g/dL (3.4-5.0); Bilirubin Direct 0.2 mg/dL (0-0.2); Bilirubin Total 0.5 mg/dL (0.2-1.0); Potassium 5.3 mmol/L (3.5-5.1); Protein, Total 7.5 g/dL (6.4-8.2)
[2019-09-04] MEDS ORDERED: ALPRAZOLAM 0.25 MG TABLET PO PRN (22:02)
[2019-09-04] MEDS ORDERED: ONDANSETRON 4 MG/2 ML VIAL IV PRN (22:02)
[2019-09-04 22:17] LABS: Urine Blood TRACE (NEG); Urine Glucose 2+ (NEG); Urine Protein NEGATIVE (NEG); Urine pH 5.5 (5.0-7.0)
[2019-09-04] MEDS ORDERED: INSULIN -REGULAR HUMAN 50 UNIT/0.5 ML ML ONE ×3 (22:23→23:05)
[2019-09-04] MEDS ORDERED: NA CHLORIDE 0.9% 1,000 ML IV SCH (23:00)
[2019-09-04 23:54] VITALS: BMI 29.8
[2019-09-04 23:55] LABS: Blood Morphology Comment NOT SEEN (NOT SEEN); Platelet Estimate ADEQ
[2019-09-05] MEDS ORDERED: AZITHROMYCIN IV 500 MG in NA CHLORIDE 0.9% 250 ML IVPB SCH ×2 (06:00→09:00)
[2019-09-05 06:29] LABS: Absolute Lymphocytes (CBC) 1.4 K/uL (0.7-4.9); Basophils % 0.4 % (0-1.3); Hematocrit 34.8 % (39.6-49.0); Lymphocytes % 7.9 % (15.3-44.8); MPV 8.1 fL (7.6-11.3); RBC Red Blood Cell Count 3.88 M/uL (4.33-5.43)
[2019-09-05 06:32] LABS: Protime INR 1.27
[2019-09-05 06:46] LABS: Albumin 2.3 g/dL (3.4-5.0); Bilirubin Total 0.3 mg/dL (0.2-1.0); Magnesium 1.8 mg/dL (1.8-2.4); Potassium 4.7 mmol/L (3.5-5.1); Protein, Total 7.8 g/dL (6.4-8.2)
--- NOTE | 2019-09-05 07:30 | P.HP ---
Certification for Inpatient Patient admitted to: Inpatient With expected LOS: >2 Midnights Patient will require the following post-hospital care: None Practitioner: I am a practitioner with admitting privileges, knowledge of patient current condition, hospital course, and medical plan of care. Services: Services provided to patient in accordance with Admission requirements found in Title 42 Section 412.3 of the Code of Federal Regulations Patient History Date of Service: 09/04/19 Reason for admission: epididymitis History of Present Illness: Patient is a 74-year-old gentleman with a past medical history of hypertension , diabetes, neuropathy, and allergies who presents to the hospital with testicular pain. Patient had a CT performed in the emergency room which revealed that he had mild epididymitis. There was no fluid collection or an abscess noted. Patient also has some dehydration with acute renal insufficiency. Patient will be admitted to the hospital for IV antibiotics. Will get cultures to try to determine the etiology. Will continue with IV antibiotics and pain control as well. Patient will need inpatient admission for treatment of the epididymitis. We will also consult Dr. Silva who was available in the morning. Patient is feeling somewhat better although he states the pain waxes and wanes. Will continue with pain control and if renal function improves we can try an anti-inflammatory. Allergies No Known Allergies Allergy (Verified 09/05/19 01:34) Home Medications: Acetaminophen [Acetaminophen Extra Strength] 1,000 mg PO BID 09/05/19 Amlodipine [Norvasc*] 1 tab PO DAILY 09/05/19 Aspirin [Aspir-Low] 1 tab PO SEECOM 09/05/19 Atenolol [Tenormin] 1 tab PO DAILY 09/05/19 Atorvastatin Calcium [Lipitor] 40 mg PO BEDTIME 09/05/19 Cetirizine HCl [Zyrtec] 1 tab PO DAILY 09/05/19 Gabapentin 600 mg PO TID 09/05/19 Hydralazine HCl 50 mg PO BID 09/05/19 Insulin 70/30 NPH/Reg Human [Novolin 70/30*] 30 unit SQ DAILY AT SUPPER Insulin 70/30 NPH/Reg Human [Novolin 70/30*] 50 unit SQ DAILY WITH BREAKFAST Losartan/Hydrochlorothiazide [Losartan-Hctz 100-12.5 mg Tab] 1 each PO DAILY Montelukast [Singulair*] 1 tab PO DAILY 09/05/19 Omeprazole [Prilosec] 1 tab PO DAILY 09/05/19 - Past Medical/Surgical History Has patient received pneumonia vaccine in the past: No Diabetic: Yes -: iddm -: hypertension -: seasonal allergies -: surgery left arm (mrsa) 1966 - Family History Mother Medical History: Heart disease Father Medical History: Diabetes, Cancer - Social History Smoking Status: Never smoker Alcohol use: No CD- Drugs: No Caffeine use: Yes Place of Residence: Home Review of Systems 10-point ROS is otherwise unremarkable Physical Examination - Vital Signs Temperature: 98.6 F Blood Pressure: 138/69 Pulse: 79 Respirations: 18 Pulse Ox (%): 96 - Physical Exam General: Alert, In no apparent distress, Oriented x3 HEENT: Atraumatic, PERRLA, Mucous membr. moist/pink, EOMI, Sclerae nonicteric Neck: Supple, 2+ carotid pulse no bruit, No LAD, Without JVD or thyroid abnormality Respiratory: Clear to auscultation bilaterally, Normal air movement Cardiovascular: Regular rate/rhythm, Normal S1 S2, No murmurs Gastrointestinal: Normal bowel sounds, Soft and benign, Non-distended, No tenderness Musculoskeletal: No clubbing, No swelling, No tenderness Integumentary: No rashes Neurological: Normal gait, Normal speech, Normal strength at 5/5 x4 extr, Normal tone, Sensation intact, Cranial nerves 3-12 intact, Normal affect Lymphatics: No axilla or inguinal lymphadenopathy External genitalia: Tenderness - Studies Laboratory Data (last 24 hrs) 09/04/19 21:15: Creatinine 2.24 H 09/04/19 21:15: WBC 16.4 H, Hgb 11.5 L, Hct 35.7 L, Plt Count 475 H 09/04/19 21:15: Sodium 128 L, Potassium 5.3 H, BUN 60 H, Creatinine 2.21 H, Glucose 547 H*, Total Bilirubin 0.5, AST 25, ALT 52, Alkaline Phosphatase 132 H , Lipase 211 Male Exam - Male Exam Scrotum: Tenderness Testicular exam: Bilaterally descended Assessment & Plan - Problems (Diagnosis) (1) Epididymitis Current Visit: Yes Status: Acute (2) History of hypertension Current Visit: Yes Status: Acute (3) History of type 2 diabetes mellitus Current Visit: Yes Status: Acute (4) History of neuropathy Current Visit: Yes Status: Acute - Plan Plan: 1. IV antibiotics 2. Pain control 3. Urologic consultation 4. Monitor her labs closely 5. Strict blood pressure and blood sugar control 6. Continue gabapentin for neuropathy 7. GI and DVT prophylaxis Discharge Plan: Home Plan to discharge in: Greater than 2 days - Advance Directives Does patient have a Living Will: No Does patient have a Durable POA for Healthcare: No Physician Review: Patient Assessed, Agree with Above Assessment and Plan Critical Care: No Time Spent Managing PTS Care (In Minutes): 45
[2019-09-05] MEDS ORDERED: HOME MED 1 EA UNK (Omeprazole [Prilosec] 1 TAB) PO SCH (09:00)
[2019-09-05] MEDS ORDERED: HOME MED 1 EA UNK (Gabapentin [Gabapentin] 600 MG) PO SCH (09:00)
[2019-09-05] MEDS ORDERED: MAGNESIUM SULFATE 1 gm IVPB 1 GM/100 ML BAG IV ONE (09:00)
[2019-09-05] MEDS ORDERED: ATENOLOL PO SCH (09:00)
[2019-09-05] MEDS: INSULIN 70/30 100 UNITS/ML SQ SCH ×2 (09:45→16:43)
[2019-09-05] MEDS: ENOXAPARIN 40 MG/0.4 ML SQ SCH (09:46)
[2019-09-05] MEDS: MONTELUKAST 10 MG TAB PO SCH (09:46)
[2019-09-05] MEDS: AMLODIPINE 10 MG TAB PO SCH (09:46)
[2019-09-05] MEDS: GABAPENTIN 300 MG CAP PO SCH ×3 (09:46→21:31)
[2019-09-05] MEDS: CEFTRIAXONE/SWI 1gm 1 GM/10 ML SYR IVP SCH ×2 (09:47→21:31)
[2019-09-05] MEDS: ACETAMINOPHEN 500 MG TAB PO PRN (09:58)
[2019-09-05] MEDS: NA CHLORIDE 0.9% 1,000 ML IV SCH ×2 (10:00→21:32)
[2019-09-05] MEDS: ATENOLOL 50 MG TAB PO SCH (10:06)
[2019-09-05] MEDS: PANTOPRAZOLE 40MG TABLET PO SCH (10:08)
[2019-09-05 10:50] LABS: Urine Appearance CLEAR; Urine Bilirubin NEGATIVE (NEG); Urine Blood TRACE (NEG); Urine Color YELLOW; Urine Glucose 3+ (NEG); Urine Protein TRACE (NEG); Urine Urobilinogen 0.2 mg/dL (0.2-1.0); Urine pH 5.5 (5.0-7.0)
[2019-09-05 10:52] LABS: Urine Microscopic Reflex ORDER UMIC
--- NOTE | 2019-09-05 10:59 | P.PN ---
Subjective Date of Service: 09/05/19 Chief Complaint: epididymitis Patient admitted with acute onset of right-sided scrotal swelling diagnosis of epididymitis no other complaints apart from pain Review of Systems Unremarkable Physical Examination - Vital Signs Temperature: 8 F Blood Pressure: 138/69 Pulse: 79 Respirations: 18 Pulse Ox (%): 96 - Physical Exam General: Alert, Oriented x3 Cardiovascular: No edema External genitalia: Other (Right scrotum is enlarged tender swollen) - Studies Laboratory Data (last 24 hrs) 09/04/19 21:15: Creatinine 2.24 H 09/04/19 21:15: WBC 16.4 H, Hgb 11.5 L, Hct 35.7 L, Plt Count 475 H 09/04/19 21:15: Sodium 128 L, Potassium 5.3 H, BUN 60 H, Creatinine 2.21 H, Glucose 547 H*, Total Bilirubin 0.5, AST 25, ALT 52, Alkaline Phosphatase 132 H , Lipase 211 Assessment & Plan - Problems (Diagnosis) (1) Epididymitis Current Visit: Yes Status: Acute Plan: Patient admitted with a diagnosis of epididymitis is white count is elevated right side of his scrotum is a large and tender no obvious precipitating factors cultures pending Dc Zithromax and p.o. levofloxacin hemodynamically stable labs reviewed patient has chronic renal failure evidence of sepsis continue with IV Rocephin once the white count is declining in Dc IV antibiotics urology consultation pending cultures pending Physician Review: Patient Assessed, Agree with Above Assessment and Plan
[2019-09-05] MEDS ORDERED: INFLUENZA VACCINE (for 3y+) 0.5 ML DOSE IMVAC ONE (11:00)
[2019-09-05] MEDS ORDERED: PNEUMOCOCCAL VACCINE 0.5 ML IMVAC ONE (11:00)
--- NOTE | 2019-09-05 11:01 | RAD REPORT ---
EXAM DESCRIPTION: US - Scrotum Testicles - 09/04/2019 10:07 pm CLINICAL HISTORY: PAIN COMPARISON: Scrotum Testicles dated 09/03/2019 FINDINGS: The right testicle 4.4 x 3.3 x 2.5 cm. No intratesticular masses or evidence of testicular torsion. The left testicle 3.2 x 3.0 x 1.7 cm. No intratesticular masses or evidence of testicular torsion. The left epididymis is normal. The right epididymis is enlarged and shows increased blood flow. No pathologic fluid collections. IMPRESSION: Moderate right epididymitis suspected.
[2019-09-05 11:02] LABS: Urine Bacteria 20-50 /HPF (NONE SEEN); Urine Culture Reflex Order REFLEXED
--- NOTE | 2019-09-05 11:02 | RAD REPORT ---
EXAM DESCRIPTION: RAD - Chest Single View - 09/04/2019 9:38 pm CLINICAL HISTORY: COUGH Chest pain. COMPARISON: No comparisons FINDINGS: Portable technique limits examination quality. The lungs are grossly clear. The heart is normal in size. No displaced fractures. IMPRESSION: No acute intrathoracic process suspected.
[2019-09-05] MEDS ORDERED: D50W 25 GM/50 ML SYRINGE IV PRN (11:33)
[2019-09-05] MEDS ORDERED: GLUCAGON 1 MG/VIAL IM PRN (11:33)
[2019-09-05] MEDS: levoFLOXacin 500 MG TAB PO SCH (12:03)
[2019-09-05] MEDS: INSULIN -REGULAR HUMAN 50 UNIT/0.5 ML ML SQ SCH ×3 (12:03→21:32)
--- NOTE | 2019-09-05 19:54 | EKG ---
Test Date: 2019-09-04 Test Time: 21:34:33 [employer] Building [employer] Specialist: LIAMT MEASUREMENT RESULTS: Intervals: Rate: 71 MN: 184 QRSD: 88 QT: 390 QTc: 423 [place]: P: 56 MN: 184 QRS: 39 T: 40 INTERPRETIVE STATEMENTS: Normal sinus rhythm Normal ECG No previous ECG available for comparison Electronically Signed On 09-05-19 19:52:48 CDT by Alexander Rivas
[2019-09-05] MEDS: ATORVASTATIN 20 MG TAB PO SCH (21:31)
[2019-09-05] MEDS ORDERED: CEFTRIAXONE 1 GM/NS 50 ML 1 GM/50 ML BAG IV SCH (23:00)
[2019-09-06] MEDS: PANTOPRAZOLE 40MG TABLET PO SCH (06:28)
[2019-09-06] MEDS: ACETAMINOPHEN 500 MG TAB PO PRN ×2 (06:30→20:26)
[2019-09-06] MEDS: CEFTRIAXONE/SWI 1gm 1 GM/10 ML SYR IVP SCH ×2 (08:23→20:25)
[2019-09-06] MEDS: INSULIN 70/30 100 UNITS/ML SQ SCH ×2 (08:23→17:06)
[2019-09-06] MEDS: INSULIN -REGULAR HUMAN 50 UNIT/0.5 ML ML SQ SCH ×4 (08:24→20:25)
[2019-09-06] MEDS: levoFLOXacin 500 MG TAB PO SCH (08:24)
[2019-09-06] MEDS: ENOXAPARIN 40 MG/0.4 ML SQ SCH (08:24)
[2019-09-06] MEDS: MONTELUKAST 10 MG TAB PO SCH (08:25)
[2019-09-06] MEDS: AMLODIPINE 10 MG TAB PO SCH (08:25)
[2019-09-06] MEDS: ATENOLOL 50 MG TAB PO SCH (08:26)
[2019-09-06] MEDS: GABAPENTIN 300 MG CAP PO SCH ×3 (08:26→20:25)
[2019-09-06] MEDS ORDERED: ATENOLOL 50 MG TAB PO SCH (09:00)
[2019-09-06] MEDS ORDERED: MAGNESIUM SULFATE 1 gm IVPB 1 GM/100 ML BAG IV ONE (09:00)
--- NOTE | 2019-09-06 11:03 | P.PN ---
Subjective Date of Service: 09/06/19 Primary Care Provider: unknown Chief Complaint: epididymitis Subjective: Other (Patient is slightly improved. Pain to the scrotal area stable.) Physical Examination - Vital Signs Temperature: 99 F Blood Pressure: 114/65 Pulse: 75 Respirations: 18 Pulse Ox (%): 96 - Physical Exam General: Alert, In no apparent distress, Oriented x3, Cooperative HEENT: Atraumatic Neck: Supple Respiratory: Clear to auscultation bilaterally, Normal air movement Cardiovascular: Normal pulses, Regular rate/rhythm Gastrointestinal: Normal bowel sounds, Soft and benign, Non-distended, No tenderness, No masses, No rebound, No guarding Integumentary: Other (see below) External genitalia: Other (Erythema, swelling to the right scrotal region. Pain with palpation. 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 Will discontinue vancomycin due to blood culture being Gram-negative. Will continue to monitor the patient closely. Urology has been consulted. Await further recommendation. Will ambulate patient. Initiate DVT prophylaxis. Anticipate discharge in the next 24-48 hr with clinical improvement. I will turn the service over to Dr. Venegas tomorrow. I will go over the plan of care with her. 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 Will monitor and address appropriately. Will check A1c. Acute on chronic renal disease stage 3 with hyperkalemia: Patient appears to be near his baseline. Will continue to monitor patient closely. Patient no longer with hyperkalemia. Hyponatremia likely from dehydration: This has improved. Will continue to monitor the patient closely. Will adjust IV fluids. HTN: Continue with Norvasc and atenolol. Please note hydralazine and losartan/ hydrochlorothiazide currently on will continue to monitor and adjust appropriately. Hyperlipidemia: Continue with med. DM Neuropathy: Continue with med. Anemia of chronic disease: Continue to monitor closely. Will check iron and B12 studies. Time Spent Managing Pts Care (In Minutes): 55
[2019-09-06] MEDS: NA CHLORIDE 0.9% 1,000 ML IV SCH (12:10)
[2019-09-06 12:25] LABS: Ferritin 343.2 ng/mL (26-388)
[2019-09-06] MEDS ORDERED: INFLUENZA VACCINE (for 3y+) 0.5 ML DOSE IMVAC ONE (15:00)
[2019-09-06] MEDS ORDERED: PNEUMOCOCCAL VACCINE 0.5 ML IMVAC ONE (15:00)
[2019-09-06] MEDS: ASPIRIN EC 81 MG TAB PO SCH (17:06)
[2019-09-06] MEDS: ATORVASTATIN 20 MG TAB PO SCH (20:25)
--- NOTE | 2019-09-06 21:51 | CON ---
History Of Present Illness: A 74-year-old man with past medical history of hypertension, diabetes, nephropathy _ came in with several day history of right testicular pain, right epididymo-orchitis diagnosed by ultrasound and physical exam. He failed outpatient therapy. He denies history of BPH, difficulty voiding. No bladder history. No kidney stones or any renal problem. He has seen his primary care from their office and wanted to order Nephrology consult for his insufficiency which is pending. Allergies: NO KNOWN DRUG ALLERGIES. Home Medications: Tylenol, amlodipine, aspirin, atenolol, Lipitor, cetirizine, gabapentin, hydralazine, insulin, losartan, Singulair, Prilosec. Past Medical History: Insulin-dependent diabetes mellitus, hypertension, seasonal allergies. Family History: Mother with heart disease. Father had diabetes and cancer. Social History: Never smoked. No alcohol use. No drug use. Caffeine use, yes. Lives at home. Review of Systems: Otherwise unremarkable. Physical Examination: Vital Signs: Patient was afebrile. Latest vital signs; 98.2, 70, 18, 119/70, 93% sat on room air. HEENT: Atraumatic, normocephalic. Neck: Supple. No JVD. Chest: Clear. Abdomen: Soft, nontender. : Right testicle swollen, tender. Left testicle normal. FADIA deferred at this point. Laboratory Data: Patient's laboratory shows chemistry, sodium 134, potassium 4.7, chloride 104, carbon dioxide 22, BUN 52, creatinine 2.05. Estimated glucose was 338, alkaline phosphatase elevated at 1.6. Coagulations studies, PT 14.9, INR 1.27, PTT 26. White count is 17.3 thousand, H and H are 11.7 and 34.8, platelet count 535. Microbiology, urine not growing anything. Assessment: Right epididymo-orchitis. Patient is only on Rocephin, Levaquin. Noticed white count, still very high. He could have a resistant bug to those antibiotics, possibly may need extended-spectrum beta-lactamase coverage with meropenem. We will see how he does until tomorrow. JACQUELIN/LAKIA Voice ID: [id number] Report ID: [id number] JACE
[2019-09-07] MEDS: NA CHLORIDE 0.9% 1,000 ML IV SCH (05:56)
[2019-09-07 06:12] LABS: Magnesium 1.7 mg/dL (1.8-2.4); Potassium 4.6 mmol/L (3.5-5.1)
[2019-09-07 06:13] LABS: Absolute Lymphocytes (CBC) 1.4 K/uL (0.7-4.9); Hematocrit 30.7 % (39.6-49.0); Lymphocytes % 11.2 % (15.3-44.8); MPV 7.4 fL (7.6-11.3); RBC Red Blood Cell Count 3.44 M/uL (4.33-5.43)
[2019-09-07] MEDS ORDERED: MAGNESIUM SULFATE 1 gm IVPB 1 GM/100 ML BAG IV ONE (06:19)
[2019-09-07] MEDS: PANTOPRAZOLE 40MG TABLET PO SCH (07:30)
[2019-09-07] MEDS: INSULIN -REGULAR HUMAN 50 UNIT/0.5 ML ML SQ SCH ×4 (07:30→21:00)
[2019-09-07] MEDS: INSULIN 70/30 100 UNITS/ML SQ SCH ×2 (08:30→17:07)
[2019-09-07] MEDS: AMLODIPINE 10 MG TAB PO SCH (09:33)
[2019-09-07] MEDS: GABAPENTIN 300 MG CAP PO SCH ×3 (09:37→21:00)
[2019-09-07] MEDS: ENOXAPARIN 40 MG/0.4 ML SQ SCH (09:37)
[2019-09-07] MEDS: ATENOLOL 50 MG TAB PO SCH (09:38)
[2019-09-07] MEDS: MONTELUKAST 10 MG TAB PO SCH (09:39)
[2019-09-07] MEDS: levoFLOXacin 500 MG TAB PO SCH (09:40)
[2019-09-07] MEDS: CEFTRIAXONE/SWI 1gm 1 GM/10 ML SYR IVP SCH (09:41)
--- NOTE | 2019-09-07 13:37 | PN ---
Subjective: Patient is doing well today. Objective: Vital Signs: 97.3, 68, 18, 145/70, 94%, I's and O's output not recorded. Laboratory Data: White count is down from 17,200 to 12,500 today. Chemistries reviewed. GFR is up to 44, creatinine down to 1.56. In terms of microbiology, nothing is growing so far. We will have to find out what antibiotic the patient was on as an outpatient and change that s/p failed out patinet therapy. The nurse will follow Jessica at 9:30 to find out what antibiotic he was on at home since he does not remember. Will start p.o. antibiotic for 24 hours if he is stable and then we can send him home. JACQUELIN/LAKIA Voice ID: [id number] Report ID: [id number] MTDD
--- NOTE | 2019-09-07 15:47 | P.PN ---
Subjective Date of Service: 09/07/19 Primary Care Provider: unknown Chief Complaint: epididymitis Patient seen and examined at bedside with RN. Chart reviewed. Case discussed with urology. Patient this morning feels much better than before. No other complaints to offer at this time. Review of Systems 10-point ROS is otherwise unremarkable Physical Examination - Vital Signs Temperature: 98.5 F Blood Pressure: 141/74 Pulse: 70 Respirations: 20 Pulse Ox (%): 94 - Physical Exam General: Alert, In no apparent distress HEENT: Atraumatic, PERRLA, EOMI Neck: Supple, JVD not distended Respiratory: Clear to auscultation bilaterally, Normal air movement Cardiovascular: Regular rate/rhythm, Normal S1 S2 Gastrointestinal: Normal bowel sounds, No tenderness Musculoskeletal: No tenderness Integumentary: No rashes Neurological: Normal speech, Normal tone, Normal affect Lymphatics: No axilla or inguinal lymphadenopathy - Studies Microbiology Data (last 24 hrs): 09/04/19 21:15 Blood - Blood Gram Stain - Final Medications List Reviewed: Yes Assessment And Plan - Current Problems (Diagnosis) (1) Epididymitis Current Visit: Yes Status: Acute (2) History of hypertension Current Visit: Yes Status: Chronic (3) History of neuropathy Current Visit: Yes Status: Chronic (4) History of type 2 diabetes mellitus Current Visit: Yes Status: Chronic - Plan Assessment and plan Acute epididymitis with bacteremia, blood culture 1/4 positive for Gram negative rods: Urology has been consulted. Continue with IV Rocephin at this time. Will follow up with blood culture results along with urine culture. 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 Will continue to monitor patient closely. Hyperkalemia now resolved Hyponatremia likely from dehydration: Now resolved. Will continue to monitor patient closely here in the hospital HTN: Continue norvasc, Atenolol, Losartan/HCTZ Hyperlipidemia: Continue with med. DM Neuropathy: Continue with med. Anemia of chronic disease: Continue to monitor closely. Dispositio: Will monitor patient closely here in the hospital. Discharge Plan: Home Plan to discharge in: Greater than 2 days - Code Status/Comfort Care Code Status Assessed: Yes Physician Review: Patient Assessed, Agree with Above Assessment and Plan Critical Care: No
[2019-09-07] MEDS: SMZ./TMP. 800/160 MG TABLET PO SCH (21:00)
[2019-09-07] MEDS: ATORVASTATIN 20 MG TAB PO SCH (21:00)
[2019-09-08 06:12] LABS: Absolute Lymphocytes (CBC) 1.2 K/uL (0.7-4.9); Basophils % 1.2 % (0-1.3); Hematocrit 30.5 % (39.6-49.0); Lymphocytes % 11.2 % (15.3-44.8); MPV 7.3 fL (7.6-11.3); RBC Red Blood Cell Count 3.44 M/uL (4.33-5.43)
[2019-09-08 06:25] LABS: Magnesium 1.8 mg/dL (1.8-2.4); Potassium 4.7 mmol/L (3.5-5.1)
[2019-09-08] MEDS: INSULIN -REGULAR HUMAN 50 UNIT/0.5 ML ML SQ SCH ×4 (07:30→21:00)
[2019-09-08] MEDS ORDERED: MAGNESIUM SULFATE 1 gm IVPB 1 GM/100 ML BAG IV ONE (09:00)
[2019-09-08] MEDS: MONTELUKAST 10 MG TAB PO SCH (09:21)
[2019-09-08] MEDS: AMLODIPINE 10 MG TAB PO SCH (09:21)
[2019-09-08] MEDS: GABAPENTIN 300 MG CAP PO SCH ×3 (09:21→21:42)
[2019-09-08] MEDS: SMZ./TMP. 800/160 MG TABLET PO SCH (09:21)
[2019-09-08] MEDS: ENOXAPARIN 40 MG/0.4 ML SQ SCH (09:22)
[2019-09-08] MEDS: PANTOPRAZOLE 40MG TABLET PO SCH (09:22)
[2019-09-08] MEDS: INSULIN 70/30 100 UNITS/ML SQ SCH ×2 (09:22→17:02)
[2019-09-08] MEDS: ATENOLOL 50 MG TAB PO SCH (10:04)
[2019-09-08 11:39] LABS: C.trachomatis RNA,TMA Not Detected (Not Detected)
--- NOTE | 2019-09-08 12:56 | P.PN ---
Subjective Date of Service: 09/08/19 Primary Care Provider: unknown Chief Complaint: epididymitis Patient seen and examined at bedside with RN. Chart reviewed. Case discussed with urology. Patient this morning feels much better than before. No other complaints to offer at this time. Review of Systems 10-point ROS is otherwise unremarkable Physical Examination - Vital Signs Temperature: 97.6 F Blood Pressure: 134/74 Pulse: 67 Respirations: 18 Pulse Ox (%): 94 - Physical Exam General: Alert, In no apparent distress HEENT: Atraumatic, PERRLA, EOMI Neck: Supple, JVD not distended Respiratory: Clear to auscultation bilaterally, Normal air movement Cardiovascular: Regular rate/rhythm, Normal S1 S2 Gastrointestinal: Normal bowel sounds, No tenderness Musculoskeletal: No tenderness Integumentary: No rashes Neurological: Normal speech, Normal tone, Normal affect Lymphatics: No axilla or inguinal lymphadenopathy - Studies Microbiology Data (last 24 hrs): 09/04/19 21:15 Blood - Blood Aerobic Blood Culture - Final Escherichia Coli 09/04/19 21:15 Blood - Blood Gram Stain - Final Medications List Reviewed: Yes Assessment And Plan - Current Problems (Diagnosis) (1) Epididymitis Current Visit: Yes Status: Acute (2) History of hypertension Current Visit: Yes Status: Chronic (3) History of neuropathy Current Visit: Yes Status: Chronic (4) History of type 2 diabetes mellitus Current Visit: Yes Status: Chronic - Plan Assessment and plan Acute epididymitis with bacteremia, culture + for ECOLI: Urology has been consulted. Now on PO levaquin. Will follow up with repeat blood culture results. 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 Will continue to monitor patient closely. Hyperkalemia now resolved Hyponatremia likely from dehydration: Now resolved. Will continue to monitor patient closely here in the hospital HTN: Continue norvasc, Atenolol, Losartan/HCTZ Hyperlipidemia: Continue with med. DM Neuropathy: Continue with med. Anemia of chronic disease: Continue to monitor closely. Dispositio: Will monitor patient closely here in the hospital. Discharge Plan: Home Plan to discharge in: Greater than 2 days - Code Status/Comfort Care Code Status Assessed: Yes Physician Review: Patient Assessed, Agree with Above Assessment and Plan Critical Care: No
[2019-09-08] MEDS: ASPIRIN EC 81 MG TAB PO SCH (17:02)
[2019-09-08] MEDS: ATORVASTATIN 20 MG TAB PO SCH (21:42)
[2019-09-09 04:28] LABS: Absolute Lymphocytes (CBC) 1.6 K/uL (0.7-4.9); Basophils % 1.4 % (0-1.3); Hematocrit 31.9 % (39.6-49.0); Lymphocytes % 17.8 % (15.3-44.8); MPV 7.4 fL (7.6-11.3)
[2019-09-09 04:44] LABS: Potassium 4.8 mmol/L (3.5-5.1)
[2019-09-09] MEDS: INSULIN -REGULAR HUMAN 50 UNIT/0.5 ML ML SQ SCH ×2 (07:30→12:06)
[2019-09-09 08:45] VITALS: O2SAT 95
[2019-09-09] MEDS: PANTOPRAZOLE 40MG TABLET PO SCH (08:48)
[2019-09-09] MEDS: ATENOLOL 50 MG TAB PO SCH (08:48)
[2019-09-09] MEDS: GABAPENTIN 300 MG CAP PO SCH (08:49)
[2019-09-09] MEDS: AMLODIPINE 10 MG TAB PO SCH (08:49)
[2019-09-09] MEDS: MONTELUKAST 10 MG TAB PO SCH (08:49)
[2019-09-09] MEDS: INSULIN 70/30 100 UNITS/ML SQ SCH (08:50)
[2019-09-09] MEDS: ENOXAPARIN 40 MG/0.4 ML SQ SCH (08:50)
[2019-09-09] MEDS ORDERED: levoFLOXacin 500 MG TAB PO SCH (09:00)
--- NOTE | 2019-09-09 12:43 | P.DS ---
Admission Date: 09/04/19 Discharge Date: 09/09/19 Primary Care Provider: unknown Disposition: ROUTINE DISCHARGE Discharge Condition: GOOD Reason for Admission: epididymitis Consultations: Urology - Problems (1) Epididymitis Current Visit: Yes Status: Acute (2) History of hypertension Current Visit: Yes Status: Chronic (3) History of neuropathy Current Visit: Yes Status: Chronic (4) History of type 2 diabetes mellitus Current Visit: Yes Status: Chronic Brief History of Present Illness: Patient is a 74-year-old gentleman with a past medical history of hypertension , diabetes, neuropathy, and allergies who presents to the hospital with testicular pain. Patient had a CT performed in the emergency room which revealed that he had mild epididymitis. There was no fluid collection or an abscess noted. Patient also has some dehydration with acute renal insufficiency. Patient will be admitted to the hospital for IV antibiotics. Will get cultures to try to determine the etiology. Will continue with IV antibiotics and pain control as well. Patient will need inpatient admission for treatment of the epididymitis. We will also consult Dr. Silva who was available in the morning. Patient is feeling somewhat better although he states the pain waxes and wanes. Will continue with pain control and if renal function improves we can try an anti-inflammatory. Allergies Hospital Course: Overall during the hospital stay patient remained stable Patient was initially admitted to the hospital for epididymitis. Urine culture and blood cultures were collected here in the hospital. Patient was started on IV antibiotics. Urology was also consulted here in the hospital. Patient was found to have a a KI as well on admission. For which she was started on IV fluids. Once the patient was started on antibiotics include he had marked improvement in her symptoms. Urine culture and blood cultures were positive for E. coli. Patient was switched over to doxycycline. Patient's repeated blood cultures troponin remained negative while here in the hospital. Patient was thus discharged home under stable control once is symptoms improved. Was asked to follow up with primary care provider along with Neurology in about 1-2 days post discharge. Patient demonstrate understanding and thus was discharged home under stable condition Vital Signs/Physical Exam: Temp Pulse Resp BP Pulse Ox 99 F 70 18 139/72 95 09/09/19 08:00 09/09/19 08:49 09/09/19 08:00 09/09/19 08:49 09/09/19 08:00 General: Alert, In no apparent distress HEENT: Atraumatic, PERRLA, EOMI Neck: Supple, JVD not distended Respiratory: Clear to auscultation bilaterally, Normal air movement Cardiovascular: Regular rate/rhythm, Normal S1 S2 Gastrointestinal: Normal bowel sounds, No tenderness Musculoskeletal: No tenderness Integumentary: No rashes Neurological: Normal speech, Normal tone, Normal affect Lymphatics: No axilla or inguinal lymphadenopathy Laboratory Data at Discharge: WBC 9.2 K/uL (4.3-10.9) D 09/09/19 03:46 Hgb 10.8 g/dL (13.6-17.9) L 09/09/19 03:46 Hct 31.9 % (39.6-49.0) L 09/09/19 03:46 Plt Count 408 K/uL (152-406) H 09/09/19 03:46 PT 14.9 SECONDS (9.5-12.5) H 09/05/19 05:21 INR 1.27 09/05/19 05:21 APTT 26.0 SECONDS (24.3-36.9) 09/05/19 05:21 Sodium 138 mmol/L (136-145) 09/09/19 03:46 Potassium 4.8 mmol/L (3.5-5.1) 09/09/19 03:46 BUN 28 mg/dL (7-18) H 09/09/19 03:46 Creatinine 1.55 mg/dL (0.55-1.3) H 09/09/19 03:46 Glucose 79 mg/dL (74-106) 09/09/19 03:46 Phosphorus 3.0 mg/dL (2.5-4.9) 09/05/19 05:21 Magnesium 2.0 mg/dL (1.8-2.4) 09/09/19 03:46 Total Bilirubin 0.3 mg/dL (0.2-1.0) 09/05/19 05:21 AST 23 U/L (15-37) 09/05/19 05:21 ALT 48 U/L (12-78) 09/05/19 05:21 Alkaline Phosphatase 146 U/L (45-117) H 09/05/19 05:21 Lipase 211 U/L (73-393) 09/04/19 21:15 Home Medications: Acetaminophen [Acetaminophen Extra Strength] 1,000 mg PO BID 09/05/19 Amlodipine [Norvasc*] 1 tab PO DAILY 09/05/19 Aspirin [Aspir-Low] 1 tab PO SEECOM 09/05/19 Atenolol [Tenormin] 1 tab PO DAILY 09/05/19 Atorvastatin Calcium [Lipitor*] 40 mg PO BEDTIME 09/05/19 Cetirizine HCl [Zyrtec] 1 tab PO DAILY 09/05/19 Gabapentin 600 mg PO TID 09/05/19 Hydralazine HCl 50 mg PO BID 09/05/19 Insulin 70/30 NPH/Reg Human [Novolin 70/30*] 30 unit SQ DAILY AT SUPPER Insulin 70/30 NPH/Reg Human [Novolin 70/30*] 50 unit SQ DAILY WITH BREAKFAST Losartan/Hydrochlorothiazide [Losartan-Hctz 100-12.5 mg Tab] 1 each PO DAILY Montelukast [Singulair*] 1 tab PO DAILY 09/05/19 Omeprazole [Prilosec] 1 tab PO DAILY 09/05/19 Sulfamethoxazole/Trimethoprim [Bactrim Ds Tablet] 1 each PO DAILY #10 tablet New Medications: Sulfamethoxazole/Trimethoprim [Bactrim Ds Tablet] 1 each PO DAILY #10 tablet Diet: Regular Activity: Ad karyn Followup: John Silva MD [ACTIVE - CAN ADMIT] - 1-2 Weeks (urologist- call to schedule an appointment ) Alvin Whalen MD [Primary Care Provider] - 1-2 Weeks (primary care physician- call to schedule an appointment )
[2019-09-09 14:10] VITALS: BP 127/68; TEMP 98.8
== END 2019-09-09 13:23 | disposition home or self-care (01) | DRG 728 ==
LOC: ER 19:54 → ERHOLD 22:02 → 4TH 22:51
PROVIDERS: ADMIT Hospitalist; ATTEND Hospitalist
DX: N45.1 Epididymitis (principal); R78.81 Bacteremia; N17.9 Acute kidney failure, unspecified; E87.1 Hypo-osmolality and hyponatremia; B96.89 Other specified bacterial agents as the cause of diseases classified elsewhere; E86.0 Dehydration; I10 Essential (primary) hypertension; E11.40 Type 2 diabetes mellitus with diabetic neuropathy, unspecified; B96.20 Unspecified Escherichia coli [E. coli] as the cause of diseases classified elsewhere; I12.9 Hypertensive chronic kidney disease with stage 1 through stage 4 chronic kidney disease, or unspecified chronic kidney disease; E11.22 Type 2 diabetes mellitus with diabetic chronic kidney disease; N18.3 Chronic kidney disease, stage 3 (moderate); E11.65 Type 2 diabetes mellitus with hyperglycemia; E78.5 Hyperlipidemia, unspecified; D64.9 Anemia, unspecified; E87.5 Hyperkalemia; Z23 Encounter for immunization
CPT/HCPCS: 36415; 71045; 76870; 80048; 80053; 80076; 81003; 81015; 82607; 82728; 82947; 83036; 83540; 83605; 83690; 83735; 84100; 84145; 84466; 85025; 85610; 85730; 87040; 87077; 87086; 87088; 87186; 87205; 87490; 87590; 90471; 90670; 93005; 96372; 96374; 99284; 99285; J0456; J0696; J0744; J1650; J1815; J2270; J2405; J3475; J7030; J7040; Q2035

== ENCOUNTER 2022-07-26 15:35 | Emergency (ER) | payer OTHER ==
--- OUTSIDE RECORDS SUMMARY | 2022-07-26 15:39 | XMS REPORT | Continuity of Care Document ---
:1945 Author Organization [facility] t Address [address] [place] [address] Care Team Providers Name Role Phone Roverto Massey Primary Care Physician HUI AQUINO Attending Clinician Unavailable Hui Aquino MD Attending Clinician Selina David Attending Clinician Payers Payer Name Policy Type Policy Number Effective Date Expiration Date S tami ADDISON PLS [id number] 2020 00:00:00 HMO Problems Condition Condition Condition Status Onset Resolution Last Treating Co mments Source Name Details Category Date Date Treatment Clinician Date Hyperchole Hyperchol Problem Resolve 2020-04-26 Memoria sterolemia esterolemi d 21:19:14 l (disorder) a Deny n (disorder) Resolved Problem 04/26/2020 [facility] Hypertensi Hypertens Problem Resolve 2020-04-26 Memoria ve johnathon d 21:19:14 l disorder, disorder, Herm rishabh systemic systemic arterial arterial (disorder) (disorder) Resolved Problem 04/26/2020 [facility] Lower Lower Problem Active 2020-04-26 Memor ia urinary urinary 21:19:14 l tract tract [place] symptoms symptoms (finding) (finding) Active Problem 04/26/2020 [facility] Rectum Rectum Problem Active 2020-04-26 Kadeem austyn finding finding 21:19:14 l (finding) (finding) Herm rishabh Active Problem 04/26/2020 [facility] Simple Simple Problem Active 2020-04-26 Mem oria obesity obesity 21:19:14 l (disorder) (disorder) He rmann Active Problem 04/26/2020 [facility] Diabetes Diabetes Problem Resolve 2020-04-26 Memoria mellitus mellitus d 21:19:14 l (disorder) (disorder) He rmann Resolved Problem 04/26/2020 [facility] Allergies, Adverse Reactions, Alerts Allergy Allergy Status Severity Reaction(s) Onset Inactive Treating Comm ents Source Name Type Date Date Clinician NO KNOWN Drug Active [facility] ALLERG Class ity of [facility] [place] Social History Social Habit Start Date Stop Date Quantity Comments Source Exposure to Not sure [facility] SARS-CoV-2 (event) [facility] Sex Ass[birth year] [facility] 00:00:00 00:00:00 [facility] [place] Smoking Status Start Date Stop Date Source Unknown if ever smoked [facility] Social [facility] Medications Ordered Filled Start Stop Current Ordering Indication Dosage Frequency Signature Comments Components Source Medication Medication Date Date Medication? Clinician (SIG) Name Name atorvastati 2018-11 Yes 40 mg = 1 M emoria n 40 mg 2-16 tab, PO, l oral tablet 16:10: Daily, 0 rm 00 Refill(s) ASPIRIN LOW 2018-11 Yes ASPIRIN Mem oria DOSE 81MG 1-18 LOW DOSE l EC 15:55: 81MG EC, Abran 00 Refill(s) 0 omeprazole 2018-11 Yes 0 Memoria 40 mg oral 1-18 Refill(s) l delayed 15:55: [place] release 00 capsule Hydralazine 2018-11 Yes 0 Memori a Hydrochlori 1-18 Refill(s) l de 50 MG 15:55: [place] Oral Tablet 00 amLODIPine 2018-11 Yes 0 Memoria 10 mg oral 1-18 Refill(s) l tablet 15:55: [place] 00 Atenolol 2018-11 Yes 0 Memoria 100 MG Oral 1-18 Refill(s) l Tablet 15:55: [place] 00 gabapentin 2018-11 Yes 0 Memoria 600 MG Oral 1-18 Refill(s) l Tablet 15:55: [place] 00 cetirizine 2018-11 Yes 0 Memoria 10 mg oral 1-18 Refill(s) l tablet 15:55: [place] 00 montelukast 2018-11 Yes 0 Memori a 10 mg oral 1-18 Refill(s) l tablet 15:55: [place] 00 Hydrochloro 2018-11 Yes 0 Memori a thiazide 1-18 Refill(s) l 12.5 MG / 15:55: [place] Losartan 00 Potassium 100 MG Oral Tablet 3 ML 2018-11 Yes SUB-Q, 0 Memoria insulin 1-18 Refill(s) l human, 15:55: [place] isophane 70 00 UNT/ML / Regular Insulin, Human 30 UNT/ML Pen Injector [Novolin] Vital Signs Vital Name Observation Time Observation Value Comments Source Height 2019-10-25 16:05:00 182.88 cm [facility] Weight 2019-10-25 16:05:00 [facility] BMI Calculated 2019-10-25 16:05:00 Memori al [place] Systolic (mm Hg) 2019-09-27 15:46:00 Kadeem rial [place] Diastolic (mm Hg) 2019-09-27 15:46:00 Mem orial [place] Heart Rate 2019-09-27 15:46:00 [facility] Height 2019-09-27 15:46:00 182.88 cm [facility] Weight 2019-09-27 15:46:00 [facility] BMI Calculated 2019-09-27 15:46:00 Crystal Castroann Procedures Procedure Date / Time Performing Clinician Source Performed US [facility]OPERIT[facility]AL 2021-11-12 [facility]:28[facility] Encounters Start End Encounter Admission Attending Care Care Encounter Source Date/Time Date/Time Type Type Clinicians Facility Department ID 2021-11-12 2021-11-12 Outpatient R MILES [facility] [id number] Univers 10:12:58 23:59:00 HUI [facility] 2021-11-12 2021-11-12 [facility] Miles [facility] [id number] Univers 10:12:58 23:59:00 [id number] [id number] [facility] [address] 2021-11-12 2021-11-12 Outpatient R [facility] [id number] Univers 12:15:00 12:15:00 [id number] [facility] 2020-04-24 2020-04-24 Ambulatory nullFlavo [facility] 55 [id number] Memoria 15:00:00 15:00:00 Pre-Reg r Specialty 02 l [facility] Shila keating [place] 2020-04-24 2020-04-24 Outpatient MHIE JUIE [id number] Memoria 10:00:00 10:00:00 02 kb Os[place] 2020-04-24 2020-04-24 Outpatient Frankie MG [id number] 10:00:00 10:00:00 Selina L 02 2019-10-25 2019-10-26 Outpatient nullFlavo [facility] Multi 55 [id number] Memoria 16:00:00 05:59:59 r Specialty 01 l [facility] Shila keating [place] 2019-10-25 2019-10-25 Outpatient Frankie [facility] [id number] 10:00:00 23:59:59 Selina L 2019-10-25 2019-10-25 Outpatient MHIE JUIE [id number] Memoria 10:00:00 10:00:00 01 kb [place] 2019-09-27 2019-09-28 Outpatient nullFlavo [facility] Multi 55 [id number] Memoria 15:40:00 05:59:59 r Specialty 00 l [facility] 2019-09-27 2019-09-27 Outpatient Frankie [facility] [id number] 09:40:00 23:59:59 Selina L 2019-09-27 2019-09-27 Outpatient MHIE JUIE [id number] Memoria 09:40:00 09:40:00 00 kb Os[place] Results Test Description Test Time Test Comments Results Result Comments Source SPECIAL CHEMISTRY 2019-10-18 15:20:00 Test Item Value Reference Range Interpretation Comme nts PSA (test code = PSA) 1.8 [facility]
--- NOTE | 2022-07-26 18:28 | RAD REPORT ---
EXAM DESCRIPTION: RAD - Chest Pa And Lat (2 Views) - 07/26/2022 6:23 pm CLINICAL HISTORY: COUGH COMPARISON: Chest Single View dated 09/04/2019 FINDINGS: Lines: None. Lungs: No evidence of edema or pneumonia. Pleural: No significant pleural effusions or pneumothorax. Cardiac: The heart size is within normal limits. Mediastinum: Within normal limits. Bones: No acute fractures. Other: None IMPRESSION: No acute cardiopulmonary disease.
--- NOTE | 2022-07-26 19:42 | EDPHYS ---
Physician Documentation [facility] Name: Mani Garibay Age: 77 yrs Sex: Male : 1945 Arrival Date: 07/26/2022 Time: 15:37 Bed 26 Private MD: Roverto Massey E ED Physician Ronnie Walden HPI: 07/26 17:30 This 77 yrs old Male presents to ER via Ambulatory with complaints of Congestion, cp Breathing Difficulty. 17:30 The patient or guardian reports cough, congestion, shortness of breath. cp 17:30 Onset: The symptoms/episode began/occurred 2 day(s) ago. Associated signs and symptoms: cp Pertinent positives: sore throat, Pertinent negatives: chest pain, diarrhea, fever, vomiting. Severity of symptoms: in the emergency department the symptoms are unchanged despite home interventions. Historical: - Allergies: 15:57 No Known Allergies; kr3 - PMHx: 15:57 Hypertension; diabetes IDDM; Hyperlipidemia; msra L FA; kr3 - PSHx: 15:57 Appendectomy; kr3 - Social history:: Smoking status: Patient denies any tobacco usage or history of. ROS: 17:35 Constitutional: Negative for body aches, chills, fever, poor PO intake. cp 17:35 Eyes: Negative for injury, pain, redness, and discharge. cp 17:35 ENT: Positive for sore throat, Negative for drainage from ear(s), ear pain, difficulty swallowing, difficulty handling secretions. 17:35 Cardiovascular: Negative for chest pain, edema, palpitations. 17:35 Respiratory: Positive for cough, "sounds productive", shortness of breath, Negative for wheezing. 17:35 Abdomen/GI: Negative for abdominal pain, vomiting, diarrhea, constipation. 17:35 Neuro: Negative for altered mental status, headache, syncope, weakness. 17:35 All other systems are negative. Exam: 17:40 Constitutional: The patient appears in no acute distress, alert, awake, comfortable, cp non-diaphoretic, non-toxic, well developed, well nourished. 17:40 Head/Face: Normocephalic, atraumatic. cp 17:40 Eyes: Periorbital structures: appear normal, Conjunctiva: normal, no exudate, no injection, Sclera: no appreciated abnormality, Lids and lashes: appear normal, bilaterally. 17:40 ENT: External ear(s): are unremarkable, Ear canal(s): are normal, clear, TM's: dullness, bilaterally, Nose: is normal, Mouth: Lips: moist, Oral mucosa: pink and intact, moist, Posterior pharynx: Airway: no evidence of obstruction, patent, Tonsils: no enlargement, no exudate, erythema, that is mild, exudate, is not appreciated. 17:40 Neck: ROM/movement: is normal, is supple, without pain, no range of motions limitations, no meningismus, Lymph nodes: no appreciated lymphadenopathy. 17:40 Chest/axilla: Inspection: normal, Palpation: is normal, no crepitus, no tenderness. 17:40 Cardiovascular: Rate: normal, Rhythm: regular, Edema: is not appreciated, JVD: is not appreciated. 17:40 Respiratory: the patient does not display signs of respiratory distress, Respirations: normal, no use of accessory muscles, no retractions, labored breathing, is not present, Breath sounds: decreased breath sounds, are not appreciated, stridor, is not appreciated, + upper airway congestion. 17:40 Abdomen/GI: Inspection: abdomen appears normal, Palpation: abdomen is soft and non-tender, in all quadrants. 17:40 Back: pain, is absent, ROM is normal. 17:40 Neuro: Orientation: to person, place \\T\\ time. Mentation: is normal, Motor: moves all fours, strength is normal. Vital Signs: 15:54 BP 149 / 70; Pulse 65; Resp 18; Temp 98.1; Pulse Ox 97% on R/A; Weight 104.33 kg; kr3 Height 6 ft. 0 in. (182.88 cm); Pain 0/10; 15:54 Body Mass Index 31.19 (104.33 kg, 182.88 cm) kr3 MDM: 17:13 Patient medically screened. cp 18:00 Differential diagnosis: bronchitis, flu, URI, pneumonia, COVID-19, strep throat. cp 19:40 Data reviewed: vital signs, nurses notes, lab test result(s). cp 19:40 Test interpretation: by ED physician or midlevel provider: plain radiologic studies. cp Counseling: I had a detailed discussion with the patient and/or guardian regarding: the historical points, exam findings, and any diagnostic results supporting the discharge/admit diagnosis, lab results, radiology results, the need for outpatient follow up, a family practitioner, to return to the emergency department if symptoms worsen or persist or if there are any questions or concerns that arise at home. ED course: VSS. Patient appears non-toxic and no signs of respiratory distress. Will discharge to home for continued monitoring. 07/26 17:22 Order name: COVID-19 SARS RT PCR (Document "Date of Onset" if Symptomatic); Complete cp Time: :07/26 17:22 Order name: Influenza Screen (a \\T\\ B); Complete Time: : cp 07/26 17:22 Order name: XRAY Chest Pa And Lat (2 Views); Complete Time: : cp 07/26 17:22 Order name: Strep; Complete Time: : cp 07/26 18:53 Order name: Throat Culture EDMS Administered Medications: No medications were administered Disposition Summary: 07/26/22 19:41 Discharge Ordered Location: Home cp Problem: new cp Symptoms: have improved cp Condition: Stable cp Diagnosis - Acute bronchitis, unspecified cp Followup: cp - With: Private Physician - When: 2 - 3 days - Reason: Recheck today's complaints Discharge Instructions: - Discharge Summary Sheet cp - Acute Bronchitis, Adult cp Forms: - Medication Reconciliation Form cp - Thank You Letter cp - Antibiotic Education cp - Prescription Opioid Use cp Prescriptions: - Tessalon Perles 100 mg Oral Capsule - take 2 capsule by ORAL route every 8 hours As needed; 20 capsule; Refills: 0, cp Product Selection Permitted - Zithromax Z-Jose 250 mg Oral Tablet - take 1 tablet by ORAL route as directed for 5 days Day 1 - take two (2) tablets cp one time. Day 2, 3, 4 , 5 take one (1) tablet once daily.; 6 tablet; Refills: 0, Product Selection Permitted Signatures: Dispatcher [employer] EDMS Jez Reed PA PA cp Reid, Kelley RN RN kr3
--- NOTE | 2022-07-26 19:42 | ER ---
Nurse's Notes [facility] Name: Mani Garibay Age: 77 yrs Sex: Male : 1945 Arrival Date: 07/26/2022 Time: 15:37 Bed 26 Private MD: Roverto Massey E Diagnosis: Acute bronchitis, unspecified Presentation: 07/26 15:54 Chief complaint: Patient states: SOB, congestion. Coronavirus screen: Vaccine status: kr3 Patient reports being unvaccinated. Client denies travel out of the [place] in the last 14 days. Ebola Screen: Patient denies travel to an Ebola-affected area in the 21 days before illness onset. Resp Distress? No respiratory distress is noted at this time. Initial Sepsis Screen: Does the patient meet any 2 criteria? No. Patient's initial sepsis screen is negative. Does the patient have a suspected source of infection? No. Patient's initial sepsis screen is negative. Risk Assessment: Do you want to hurt yourself or someone else? Patient reports no desire to harm self or others. Onset of symptoms was July 26, 2022. 15:54 Method Of Arrival: Ambulatory [facility] 15:54 Acuity: KALEY 3 kr3 Triage Assessment: 15:59 General: Appears in no apparent distress. uncomfortable. General: Behavior is calm, kr3 cooperative, appropriate for age. Pain: Denies pain. Respiratory: Reports shortness of breath at rest cough that is Airway is patent. Historical: - Allergies: 15:57 No Known Allergies; kr3 - PMHx: 15:57 Hypertension; diabetes IDDM; Hyperlipidemia; msra L FA; kr3 - PSHx: 15:57 Appendectomy; kr3 - Social history:: Smoking status: Patient denies any tobacco usage or history of. Screenin:16 Abuse screen: Denies threats or abuse. Denies injuries from another. Nutritional hb screening: No deficits noted. Tuberculosis screening: No symptoms or risk factors identified. Fall Risk None identified. Assessment: 18:15 General: Appears in no apparent distress. Behavior is calm, cooperative. Pain: Denies hb pain. Neuro: Level of Consciousness is awake, alert, obeys commands, Oriented to person, place, time, situation. Cardiovascular: Patient's skin is warm and dry. Respiratory: Reports shortness of breath cough that is Respiratory effort is even, unlabored, Respiratory pattern is regular, symmetrical. GI: No signs and/or symptoms were reported involving the gastrointestinal system. : No signs and/or symptoms were reported regarding the genitourinary system. EENT: No signs and/or symptoms were reported regarding the EENT system. Derm: Skin is pink, warm \T\ dry. Musculoskeletal: No signs and/or symptoms reported regarding the musculoskeletal system. Vital Signs: 15:54 BP 149 / 70; Pulse 65; Resp 18; Temp 98.1; Pulse Ox 97% on R/A; Weight 104.33 kg; kr3 Height 6 ft. 0 in. (182.88 cm); Pain 0/10; 15:54 Body Mass Index 31.19 (104.33 kg, 182.88 cm) kr3 ED Course: 15:37 Patient arrived in ED. mr 15:37 Roverto Massey MD is Private Physician. mr 15:51 [facility]. cp 15:51 Ronnie Walden MD is Attending Physician. cp 15:57 Triage completed. kr3 16:00 Arm band placed on left wrist. kr3 18:15 Kisha Corral, KRISTA is Primary Nurse. hb 18:16 Patient has correct armband on for positive identification. hb 18:25 XRAY Chest Pa And Lat (2 Views) In Process Unspecified. EDMS 20:22 Throat Culture Sent. tw5 20:25 No provider procedures requiring assistance completed. Patient did not have IV access tw5 during this emergency room visit. Administered Medications: No medications were administered Medication: 18:16 VIS not applicable for this client. Outcome: 19:41 Discharge ordered by . cp 20:25 Discharged to home ambulatory, with family. tw5 20:25 Condition: good 20:25 Discharge instructions given to patient, Instructed on discharge instructions, follow up and referral plans. Demonstrated understanding of instructions, follow-up care, medications, Prescriptions given X 2. 20:25 Patient left the ED. tw5 Signatures: Dispatcher [employer] Clarita Hamm mr Jez Reed PA PA cp Kisha Corral, RN RN Clara Sarmiento tw5 Megan Yen RN RN kr3
[2022-07-28 03:43] VITALS: BP 149/70; TEMP 98.1; O2SAT 97
== END 2022-07-26 20:25 | disposition home or self-care (01) ==
LOC: ER 15:35
DX: J20.9 Acute bronchitis, unspecified (principal); I10 Essential (primary) hypertension; Z20.822 Contact with and (suspected) exposure to COVID-19
CPT/HCPCS: 87070; 87081; 87804 ×2; 71046; 99283; U0003

== ENCOUNTER 2025-07-29 12:11 | Emergency (ER) | payer OTHER ==
--- OUTSIDE RECORDS SUMMARY | 2025-07-29 12:16 | XMS REPORT | Continuity of Care Document ---
Author Name Unknown Address [address] [place] [address] [place] [id number] [facility] Address [address] [place] [address] Care Team Providers Care Manager Nursing Name Role Phone Bryson Roverto Briseno Primary Care Physician [phone] Pob, Adc Lab Main Attending Clinician UnavailLuz Maria Dubon DO Attending Clinician [phone] LUZ MARIA MERIDA Attending Clinician Unavailable Doctor Unassigned, [place] Attending Clinician U Katherine Jessica MD Attending Clinician [phone] KATHERINE SHOEMAKER Attending Clinician Unavailfelipe briseno RADIOLOGY Attending Clinician Unavailable Radiology Attending Clinician Unavailable HUI AQUINO Attending Clinician Unavailable Hui Aquino MD Attending Clinician [phone] Payers Payer Name Policy Type Policy Number Effective Date Expirati on Date Source Problems Condition Name Condition Details Condition Category Status Onset Date Resolution Date Last Treatment Date Treating Clinician Comments Source Simple obesity (disorder) Simple obesity (disorder) Active Problem 04/26/2020 [facility] Problem Active 2020-04-26 21:19:14 Caroline Osullivan Diabetes mellitus (disorder) Diabetes mellitus (disorder) Resolved Problem 04/26/2020 [facility] Problem Resolve d 2020-04-26 21:19:14 Caroline Osullivan Hyperchole sterolemia (disorder) Hyperchole sterolemia (disorder) Resolved Problem 04/26/2020 [facility] Problem Resolve d 2020-04-26 21:19:14 Caroline Osullivan Hypertensi ve disorder, systemic arterial (disorder) Hypertensi ve disorder, systemic arterial (disorder) Resolved Problem 04/26/2020 [facility] Problem Resolve d 2020-04-26 21:19:14 Caroline Osullivan Lower urinary tract symptoms (finding) Lower urinary tract symptoms (finding) Active Problem 04/26/2020 [facility] Group Problem Active 2020-04-26 21:19:14 Caroline Osullivan Rectum finding (finding) Rectum finding (finding) Active Problem 04/26/2020 [facility] Problem Active 2020-04-26 21:19:14 Caroline Osullivan Allergies, Adverse Reactions, Alerts Allergy Name Allergy Type Status Severity Reaction(s) Onset Date Inactive Date Treating Clinician Comments Source No Known Medicati on Allergie s No Known Medicati on Allergie s Active Caroline Osullivan NO KNOWN ALLERGIE S Drug Class Active [facility] Social History Social Habit Start Date Stop Date Quantity Comments Source Exposure to SARS-CoV-2 (event) Not sure [facility] Sexual orientation U [facility] Sex Assigned At 1945 00:00:00 1945 00:00:00 [facility] Smoking Status Start Date Stop Date Source Tobacco smoking consumption unknown [facility] Social History [facility] rishabh Medications Ordered Medication Name Filled Medication Name Start Date Stop Date Current Medication? Ordering Clinician Indication Dosage Frequency Signature (SIG) Comments Components Source atorvastati n 40 mg oral tablet 2018-11 16:10: 00 Yes 40 mg = 1 tab, PO, Daily, 0 Refill(s) Caroline Osullivan Hydralazine Hydrochlori de 50 MG Oral Tablet 2018-11 15:55: 00 Yes 0 Refill(s) Caroline Osullivan amLODIPine 10 mg oral tablet 2018-11 15:55: 00 Yes 0 Refill(s) Caroline Osullivan Atenolol 100 MG Oral Tablet 2018-11 15:55: 00 Yes 0 Refill(s) Caroline Osullivan gabapentin 600 MG Oral Tablet 2018-11 15:55: 00 Yes 0 Refill(s) Caroline Osullivan cetirizine 10 mg oral tablet 2018-11 15:55: 00 Yes 0 Refill(s) Caroline Osullivan montelukast 10 mg oral tablet 2018-11 15:55: 00 Yes 0 Refill(s) Caroline Osullivan Hydrochloro thiazide 12.5 MG / Losartan Potassium 100 MG Oral Tablet 2018-11 15:55: 00 Yes 0 Refill(s) Caroline Osullivan 3 ML insulin human, isophane 70 UNT/ML / Regular Insulin, Human 30 UNT/ML Pen Injector [Novolin] 2018-11 15:55: 00 Yes SUB-Q, 0 Refill(s) Caroline Osullivan ASPIRIN LOW DOSE 81MG EC 2018-11 15:55: 00 Yes ASPIRIN LOW DOSE 81MG EC, Refill(s) 0 Caroline Osullivan omeprazole 40 mg oral delayed release capsule 2018-11 15:55: 00 Yes 0 Refill(s) Caroline Osullivan Vital Signs Vital Name Observation Time Observation Value Comments S ource Height 2019-10-25 16:05:[address] [facility] 2019-10-25 16:05:00 [facility] BMI Calculated 2019-10-25 16:05:[address] [facility] Systolic (mm Hg) 2019-09-27 15:46:00 [facility] Diastolic (mm Hg) 2019-09-27 15:46:00 [facility] Heart Rate 2019-09-27 15:46:00 [facility] Height 2019-09-27 15:46:[address] [facility] Weight 2019-09-27 15:46:00 [facility] BMI Calculated 2019-09-27 15:46:00 [facility] Procedure Date / Time Performed Performing Clinician Source PHYSICIAN ORDERS 2023-10-22 06:01:00 Doctor Cristina signed, [place] [facility] PHYSICIAN ORDERS 2023-04-18 05:01:00 Doctor Cristina signed, [place] [facility] XR CHEST 2 VW 2023-04-10 15:28:28 Sharon Beaulieu [facility] URIC ACID 2023-04-10 15:01:00 Sharon Beaulieu [facility] MAGNESIUM 2023-04-10 15:01:00 Sharon Beaulieu [facility] PROSTATIC SPECIFIC ANTIGEN 2023-04-10 15:01:00 Sharon Smart [facility] THYROID STIMULATING HORMONE 2023-04-10 15:01:00 Sharon Doyle [facility] COMP. METABOLIC PANEL (90778) 2023-04-10 15:01:00 Sharon Doyle [facility] LIPID PANEL (47629)(TOTAL CHOLESTEROL, TRIGLYCERIDES, HDL) 2023-04-10 15:01:00 Sharon Doyle [facility] CBC WITH DIFF 2023-04-10 15:01:00 [facility] GLYCOS[facility] HEMOGLOBIN (A1C) 2023-04-10 15:01:00 Yanira Sharon [facility] URINALYSIS 2023-04-10 15:01:00 Damien arroyo Sharon [facility] CREATININE, URINE RANDOM 2023-04-10 15:01:00 Phi Sharon Agudelo [facility] ASSIGNMENT OF BENEFITS 2023-04-10 14:33:48 Docto r Unassigned, [place] [facility] US RETROPERITONEAL COMPLETE 2021-11-12 17:28:04 Hui Aquino [facility] Appendectomy [facility] Encounters Start Date/Time End Date/Time Encounter Type Admission Type Attending [facility] Care Department Encounter ID Source 2023-10-24 11:00:00 2023-10-24 11:15:00 Preservationist Visit Cristina Mcconnell Fabio [facility] [id number] 350.1.13.10 4.2.7.2.686 [id number] [facility] 2023-10-24 11:00:00 2023-10-24 11:00:00 Outpatient R LUZ MARIA MERIDA [facility] [id number] [facility] 2023-10-22 13:00:00 2023-10-22 13:15:00 Preservationist Visit Cristina Mcconnell Luz Maria G [facility] 1.2840.114 350.1.13.10 4.2.7.2.686 [id number] [facility] 2023-10-22 13:00:00 2023-10-22 13:00:00 Outpatient R LUZ MARIA MERIDA [facility] [id number] [facility] 2023-10-22 00:00:00 2023-10-22 00:00:00 Orders Only Doctor Unassigned, [place] [facility] 1.2840.114 350.1.13.10 4.2.7.2.686 [id number] [facility] 2023-04-18 11:00:00 2023-04-18 11:15:00 Preservationist Visit Pob, Adc Lab Main Katherine Shoemaker [facility] 1.840.114 350.1.13.10 4.2.7.2.686 [id number] [facility] 2023-04-18 11:00:00 2023-04-18 11:00:00 Outpatient R [facility] [id number] [facility] 2023-04-18 00:00:00 2023-04-18 00:00:00 Orders Only Doctor Unassigned, [place] [facility] 1.20.114 350.1.13.10 4.2.7.2.686 [id number] [facility] 2023-04-10 09:35:15 2023-04-10 23:59:00 Outpatient R RADIOLOGY [facility] [id number] [facility] 2023-04-10 09:35:15 2023-04-10 23:59:00 Hospital Encounter Radiology [facility] 1.840.114 350.1.13.10 4.2.7.2.686 [id number] [facility] 2023-04-10 09:30:00 2023-04-10 09:45:00 Preservationist Visit Enedina, Adc Lab Main Katherine Shoemaker [facility] 1.2.840.114 350.1.13.10 4.2.7.2.686 [id number] [facility] 2023-04-10 00:00:00 2023-04-10 00:00:00 Orders Only Doctor Unassigned, [place] [facility] [id number] 350.1.13.10 4.2.7.2.686 [id number] [facility] 2021-11-12 10:12:58 2021-11-12 23:59:00 Outpatient R HUI AQUINO [facility] [id number] [facility] 2021-11-12 10:12:58 2021-11-12 23:59:00 Hospital Encounter Hui Aquino [facility] 1..840.114 350.1.13.10 4.2.7.2.686 [id number] [facility] 2021-11-12 12:15:00 2021-11-12 12:15:00 Outpatient R [facility] [id number] [facility] 2020-04-24 15:00:00 2020-04-24 15:00:00 Ambulatory Pre-Reg nullFlavo r [facility] [id number] Caroline Osullivan 2019-10-25 16:00:00 2019-10-26 05:59:59 Outpatient nullFlavo r [facility] [id number] Caroline Osullivan 2019-09-27 15:40:00 2019-09-28 05:59:59 Outpatient nullFlavo r [facility] [id number] Caroline Osullivan Results Test Description Test Time Test Comments Results Result Co mments Source [facility] [id number] 16:35:54 * Test Item Value Reference Range Interpretation Comme nts PSA (test code = 1014476443) 1.54 ng/mL <=4.00 BALJEET (test code = BALJEET) Biotin has been reported to cause a negative bias, interpret results relative to patient's use of biotin. Lab Interpretation (test code = 67948-2) Normal [facility]2023-[facility]-01 16:08:27* Test Item Value Reference Range Interpretation Comme nts MAGNESIUM (test code = 7101549253) 1.7 mg/dL 1.7-2.4 Lab Interpretation (test cod e = 01857-3) Normal [facility] (00767)(TOTAL CHOLESTEROL, TRIGLYCERIDES, HDL)2023-04-10 16:08:27* Test Item Value Reference Range Interpretation Comme nts CHOL (test code = 2871921167) 126 mg/dL 120-200 HDL (test code = 3302382544) 32 mg/dL >=40 L HDLC RATIO (test code = 0821386979) 3.9 <=5.0 TRIG (test code = 7494442853) 121 mg/dL 30-170 LDL CHOL (test code = 07333-8) 70 mg/dL <=160 VLDL (test code = 0019146170) 24 mg/dL 5-60 Lab Interpretation (test cod e = 72471-8) Abnormal [facility]IC PAN[facility] (09565)2023-04-10 16:08:07* Test Item Value Reference Range Interpretation Comme nts NA (test code = 2362310587) 140 mmol/L 135-145 K (test code = 4047491072) 5.4 mmol/L 3.5-5.0 H CL (test code = 5122205929) 104 mmol/L 98-108 CO2 TOTAL (test code = 2203245787) 27 mmol/L 23-31 AGAP (test code = 1982297510) 9 2-16 BUN (test code = 1120351650) 36 mg/dL 7-23 H GLUCOSE (test code = 1507846929) 99 mg/dL 70-110 CREATININE (test code = 1944155067) 2.17 mg/dL 0.60-1.25 H TOTAL BILI (test code = 2337126411) 0.8 mg/dL 0.1-1.1 CALCIUM (test code = 4926844701) 9.9 mg/dL 8.6-10.6 T PROTEIN (test code = 3101897057) 7.0 g/dL 6.3-8.2 ALBUMIN (test code = 2616653692) 4.2 g/dL 3.5-5.0 ALK PHOS (test code = 4385044494) 83 U/L 34-122 ALTv (test code = 1742-6) 24 U/L 5-50 AST(SGOT) (test code = 0537290711) 25 U/L 13-40 eGFR (test code = 9311633084) 29.8 mL/min/1.73m2 BALJEET (test code = BALJEET) Association of Glomerular Filtration Rate (GFR) and Staging of Kidney Disease* + --+ --+ ------+| GFR (mL/min/1.73 m2) ?| With Kidney Damage ?| ?Without Kidney Damage+ --------+ --------+ +| ?>90 ?| ?Stage one ?| ? Normal ?+ ---+ ---+ -------+| ?60-89 ?| ?Stage two ?| ? Decreased GFR ? + --+ --+ ------+| ?30-59 ?| ?Stage three ?| ? Stage three ? + --+ --+ ------+| ?15-29 ?| ?Stage four ? | ? Stage four ?+ ---+ ---+ -------+| ?<15 (or dialysis) ? ?| ?Stage five ? | ? Stage five ?+ ---+ ---+ -------+ *Each stage assumes the associated GFR level has been in effect for at least three months. ?Stages 1 to 5, with or without kidney disease, indicate chronic kidney disease. Notes: Determination of stages one and two (with eGFR >59mL/min/1.73 m2) requires estimation of kidney damage for at least three months as defined by structural or functional abnormalities of the kidney, manifested by either:Pathological abnormalities or Markers of kidney damage (including abnormalities in the composition of the blood or urine or abnormalities in imaging tests). Lab Interpretation (test code = 73353-1) Abnormal [facility] [id number] 16:08:07* Test Item Value Reference Range Interpretation Comme nts URIC ACID (test code = 0904825738) 6.4 mg/dL 3.6-8.0 Lab Interpretation (test cod e = 47918-7) Normal [facility] Center[facility]YCOSYLATED HEMOGLOBIN (A1C)2023-04-10 15:37:18* Test Item Value Reference Range Interpretation Comme nts HGB A1C (test code = 4548-4) 7.2 % 4.0-5.7 H BALJEET (test code = ABLJEET) Reference RangesNormal: <5.7%Prediabetes: 5.7 - 6.4%Diabetes: > 6.5% Lab Interpretation (test code = 18368-4) Abnormal [facility] Center[facility] WITH [id number] 15:21:19* Test Item Value Reference Range Interpretation Comme nts WBC (test code = 6690-2) 6.96 See_Comment [Automated Agency Systemsa ge] The system which generated this result transmitted reference range: 4.20 - 10.70 10*3/?L. The reference range was not used to interpret this result as normal/abnormal. RBC (test code = 789-8) 4.55 See_Comment [Automated messa ge] The system which generated this result transmitted reference range: 4.26 - 5.52 10*6/?L. The reference range was not used to interpret this result as normal/abnormal. HGB (test code = 718-7) 13.5 g/dL 12.2-16.4 HCT (test code = 4544-3) 41.9 % 38.4-49.3 MCV (test code = 787-2) 92.1 fL 81.7-95.6 MCH (test code = 785-6) 29.7 pg 26.1-32.7 MCHC (test code = 786-4) 32.2 g/dL 31.2-35.0 RDW-SD (test code = 64401-7) 48.7 fL 38.5-51.6 RDW-CV (test code = 788-0) 14.4 % 12.1-15.4 PLT (test code = 777-3) 275 See_Comment [Automated Agency Systemsa ge] The system which generated this result transmitted reference range: 150 - 328 10*3/?L. The reference range was not used to interpret this result as normal/abnormal. MPV (test code = 26359-9) 9.5 fL 9.8-13.0 L NRBC/100 WBC (test code = 0088529198) 0.0 See_Comment [Automated me ssage] The system which generated this result transmitted reference range: 0.0 - 10.0 /100 WBCs. The reference range was not used to interpret this result as normal/abnormal. NRBC x10^3 (test code = 0197825899) See_Comment [Automated messa ge] The system which generated this result transmitted reference range: 10*3/?L. The reference range was not used to interpret this result as normal/abnormal. GRAN MAT (NEUT) % (test code = 770-8) 64.2 % IMM GRAN % (test code = 3691449849) 0.40 % LYMPH % (test code = 736-9) 19.7 % MONO % (test code = 5905-5) 12.4 % EOS % (test code = 713-8) 2.7 % BASO % (test code = 706-2) 0.6 % GRAN MAT x10^3(ANC) (test code = 4206113989) 4.47 10*3/uL 1.99-6.95 IMM GRAN x10^3 (test code = 5234545845) 0.03 10*3/uL 0.00-0.06 LYMPH x10^3 (test code = 731-0) 1.37 10*3/uL 1.09-3.23 MONO x10^3 (test code = 742-7) 0.86 10*3/uL 0.36-1.02 EOS x10^3 (test code = 711-2) 0.19 10*3/uL 0.06-0.53 BASO x10^3 (test code = 704-7) 0.04 10*3/uL 0.01-0.09 Lab Interpretation (test code = 89641-1) Abnormal [facility] BranchSPECIAL [id number] 15:20:00* Test Item Value Reference Range Interpretation Comme nts PSA (test code = PSA) 1.8 [facility]"
[2025-07-29 13:19] LABS: Absolute Lymphocytes (CBC) 1.2 K/uL (0.7-4.9); Hematocrit 36.5 % (39.6-49.0); Hemoglobin 12.0 g/dL (13.6-17.9); MCH 29.1 pg (27.0-35.0); MCHC 32.9 g/dL (32.0-36.0); MCV 88.5 fL (80-100); MPV 7.6 fL (7.6-11.3); Nucleated RBC Absolute Count 0.0 (0-0); Nucleated Red Blood Cells % 0.0 % (0-0); RBC Red Blood Cell Count 4.13 M/uL (4.33-5.43); White Blood Count 7.20 thou/uL (4.3-10.9)
[2025-07-29 13:26] LABS: PT Prothrombin Time 13.7 SECONDS (10-13.0); Protime INR 1.22
--- NOTE | 2025-07-29 13:29 | RAD REPORT ---
EXAM: Chest Single View HISTORY: 80 years Male SOB COMPARISON: 07/26/2022 FINDINGS: LUNGS/PLEURA: The lungs are clear. No pleural effusions or pneumothorax. No pulmonary edema. CARDIAC/MEDIASTINUM: The cardiac silhouette is within normal limits. UPPER ABDOMEN: No significant abnormality. BONES: No acute abnormality. LINES/TUBES/OTHER: N/A IMPRESSION: No evidence of acute cardiopulmonary disease. No significant change from prior.
[2025-07-29 13:41] LABS: Anion Gap 10.8 mEq/L (5.0-15.0); BUN Blood Urea Nitrogen 89.0 mg/dL (7-18); Magnesium 1.3 mg/dL (1.6-2.4); NT PRO-BNP 146.0 pg/mL (<450); Potassium 3.8 mEq/L (3.5-5.1); Troponin High Sensitivity 11.0 pg/mL (<58.9)
[2025-07-29 13:43] LABS: Glucose Level 53.0 mg/dL (74-106)
--- NOTE | 2025-07-29 14:12 | ER ---
Nurse's Notes [facility] Name: Mani Garibay Age: 80 yrs Sex: Male : 1945 Arrival Date: 07/29/2025 Time: 12:11 Bed 4 Private MD: Diagnosis: Shortness of breath Presentation: 07/29 12:33 Chief complaint: Patient states: SOB, cant breathe laying flat, weak, fatigue, no ll1 appetite for 2 weeks. No known fever. Coronavirus screen: Client denies travel out of the [place] in the last 14 days. difficulty breathing, fatigue, Client presents with at least one sign or symptom that may indicate coronavirus-19. Standard/surgical mask placed on the client. Ebola Screen: Patient denies travel to an Ebola-affected area in the 21 days before illness onset. Initial Sepsis Screen: Does the patient meet any 2 criteria? No. Patient's initial sepsis screen is negative. Does the patient have a suspected source of infection? No. Patient's initial sepsis screen is negative. Risk Assessment: Do you want to hurt yourself or someone else? Patient reports no desire to harm self or others. Onset of symptoms was July 15, 2025. 12:33 Method Of Arrival: Ambulatory ll1 12:33 Acuity: KALEY 3 ll1 Triage Assessment: 12:28 General: Appears in no apparent distress. Behavior is calm, cooperative, appropriate ll1 for age, Reports feeling ill for fatigue for. Pain: Denies pain. Neuro: Reports dizziness, weakness. Respiratory: Reports shortness of breath unable to breathe well while laying flat. Historical: - Allergies: 12:28 No Known Allergies; ll1 - PMHx: 12:28 Hyperlipidemia; diabetes IDDM; Hypertension; msra L FA; ll1 - PSHx: 12:28 Appendectomy; ll1 - Immunization history:: Adult Immunizations up to date. - Infectious Disease History:: Denies. - Social history:: Smoking status: unknown. Screenin:[address] [facility] ED Fall Risk Assessment (Adult) History of falling in the last 3 months, nh2 including since admission No falls in past 3 months (0 pts) Confusion or Disorientation No (0 pts) Intoxicated or Sedated No (0 pts) Impaired Gait No (0 pts) Mobility Assist Device Used No (0 pt) Altered Elimination No (0 pt) Score/Fall Risk Level 0 - 2 = Low Risk Oriented to surroundings, Maintained a safe environment, Educated pt \T\ family on fall prevention, incl call for assistance when getting out of bed, Assessed \T\ reinforced patient's understanding of fall precautions. Abuse screen: Denies threats or abuse. Denies injuries from another. Nutritional screening: No deficits noted. Tuberculosis screening: No symptoms or risk factors identified. Assessment: 12:50 Reassessment: No changes from previously documented assessment. Patient and/or family ll1 updated on plan of care and expected duration. Pain level reassessed. 13:00 General: Appears in no apparent distress. Behavior is calm, cooperative, appropriate nh2 for age. Pain: Denies pain. Neuro: Level of Consciousness is awake, alert, obeys commands, Oriented to person, place, time, situation, Appropriate for age Reports dizziness, weakness Denies headache. Cardiovascular: Denies chest pain, Patient's skin is warm and dry. Rhythm is sinus rhythm. Respiratory: Reports shortness of breath on exertion when laying flat Airway is patent Trachea midline Respiratory effort is even, unlabored, Breath sounds are clear bilaterally. Onset: The symptoms/episode began/occurred 2 weeks ago, the patient has mild shortness of breath. GI: Abdomen is round obese, Reports not having an appetite Patient currently denies nausea, vomiting. : No signs and/or symptoms were reported regarding the genitourinary system. Denies burning with urination. EENT: No signs and/or symptoms were reported regarding the EENT system. Derm: Skin is pink, warm \T\ dry. Skin temperature is warm. Musculoskeletal: Circulation, motion, and sensation intact. Range of motion: intact in all extremities. 14:50 Reassessment: Patient appears in no apparent distress at this time. No changes from ap3 previously documented assessment. Patient and/or family updated on plan of care and expected duration. Pain level reassessed. Vital Signs: 12:33 BP 124 / 59; Pulse 61; Resp 17; Temp 98.4; Pulse Ox 97% ; Weight 106.59 kg; Height 6 ll1 ft. 0 in. ; Pain 0/10; 13:30 BP 116 / 59; Pulse 59; Resp 18; Pulse Ox 95% on R/A; nh2 14:59 BP 107 / 57; Pulse 61; Resp 12; Pulse Ox 95% on R/A; ap3 12:33 Body Mass Index 31.87 (106.59 kg, 182.88 cm) ll1 12:33 Pain Scale: Adult ll1 ED Course: 12:19 Patient arrived in ED. im 12:28 Arm band placed on. ll1 12:35 Triage completed. ll1 12:36 Butch Sharma DO is Attending Physician. ms3 12:49 Patient placed in an exam room, on a stretcher. ll1 13:12 Alex Nichols Jr, RN is Primary Nurse. nh2 13:17 Initial lab(s) drawn, by sd, sent to lab. Inserted saline lock: 20 gauge in left ap3 antecubital area, using aseptic technique. Blood collected. Flushed with 10 mL NS. 13:22 XRAY Chest (1 view) In Process Unspecified. EDMS 13:26 Patient has correct armband on for positive identification. Bed in low position. Call nh2 light in reach. Side rails up X 1. Provided Education on: using call light for assistance. 13:40 No provider procedures requiring assistance completed. nh2 13:43 Notified ED physician of a critical lab result(s). glucose 53. ll1 14:12 Surinder Lisa MD is Referral Physician. ms3 15:01 IV discontinued, intact, bleeding controlled, No redness/swelling at site. Pressure ap3 dressing applied. Administered Medications: No medications were administered Medication: 13:00 VIS not applicable for this client. ap3 Outcome: 14:12 Discharge ordered by . ms3 15:00 Discharged to home ambulatory, with family, ap3 15:00 Condition: stable 15:00 Discharge instructions given to patient, Instructed on discharge instructions, follow up and referral plans. Demonstrated understanding of instructions, follow-up care, 15:01 Patient left the ED. ap3 Signatures: Dispatcher [employer] EDMS Karen Bernal RN RN ap3 Lara Gutierres RN RN ll1 Butch Sharma DO DO ms3 Mary Sommers im Alex Nichols Jr, RN RN nh2 Corrections: (The following items were deleted from the chart) 13:39 13:00 Respiratory: Reports shortness of breath on exertion when laying flat Airway is nh2 patent Trachea midline Respiratory effort is even, unlabored, Breath sounds are clear bilaterally. nh2 13:40 13:00 Respiratory: Reports shortness of breath on exertion when laying flat Airway is nh2 patent Trachea midline Respiratory effort is even, unlabored, Breath sounds are clear bilaterally. Onset: The symptoms/episode began/occurred 2 weeks ago, nh2
--- NOTE | 2025-07-29 14:12 | EDPHYS ---
Physician Documentation [facility] Name: Mani Garibay Age: 80 yrs Sex: Male : 1945 Arrival Date: 07/29/2025 Time: 12:11 Bed 4 Private MD: ED Physician uBtch Sharma HPI: 07/29 14:24 This 80 yrs old Male presents to ER via Ambulatory with complaints of Breathing ms3 Difficulty, Trouble Walking, Decreased Appetite, General Weakness, Doesn't Feel Right. 14:24 80-year-old male with past medical history of hyperlipidemia, diabetes, hypertension ms3 presents to the emergency department for 2 weeks of shortness of breath. Patient states his shortness of breath is worse with laying flat. Patient denies nausea, vomiting, diarrhea, fevers, chills, pain. Patient endorses occasional dizziness.. Historical: - Allergies: 12:28 No Known Allergies; ll1 - PMHx: 12:28 Hyperlipidemia; diabetes IDDM; Hypertension; msra L FA; ll1 - PSHx: 12:28 Appendectomy; ll1 - Immunization history:: Adult Immunizations up to date. - Infectious Disease History:: Denies. - Social history:: Smoking status: unknown. ROS: 14:24 Constitutional: Negative for fever, and chills. Cardiovascular: Negative for chest ms3 pain, and palpitations. Abdomen/GI: Negative for abdominal pain, nausea, vomiting, diarrhea, and constipation, 14:24 MS/Extremity: Negative for injury and deformity, Skin: Negative for injury, rash, and discoloration, 14:24 Respiratory: Positive for shortness of breath, Exam: 13:51 ECG was reviewed by the Attending Physician. ms3 14:24 Constitutional: This is a well developed, well nourished patient who is awake, alert, ms3 and in no acute distress. Head/Face: Normocephalic, atraumatic. Cardiovascular: Regular rate and rhythm with a normal S1 and S2. No gallops, murmurs, or rubs. Normal PMI, no JVD. No pulse deficits. Respiratory: Lungs have equal breath sounds bilaterally, clear to auscultation and percussion. No rales, rhonchi or wheezes noted. No increased work of breathing, no retractions or nasal flaring. Abdomen/GI: Soft, non-tender, with normal bowel sounds. No distension or tympany. No guarding or rebound. No evidence of tenderness throughout. Skin: Warm, dry with normal turgor. Normal color with no rashes, no lesions, and no evidence of cellulitis. Vital Signs: 12:33 BP 124 / 59; Pulse 61; Resp 17; Temp 98.4; Pulse Ox 97% ; Weight 106.59 kg; Height 6 ll1 ft. 0 in. ; Pain 0/10; 13:30 BP 116 / 59; Pulse 59; Resp 18; Pulse Ox 95% on R/A; nh2 14:59 BP 107 / 57; Pulse 61; Resp 12; Pulse Ox 95% on R/A; ap3 12:33 Body Mass Index 31.87 (106.59 kg, 182.88 cm) ll1 12:33 Pain Scale: Adult ll1 MDM: 12:41 Medical Screening Exam initiated ms3 14:24 Differential diagnosis: Anemia CHF exacerbation, pneumonia. Data reviewed: vital signs, ms3 nurses notes, lab test result(s), EKG, radiologic studies, and as a result, I will discharge patient. Independent interpretation of the following test(s) in the Emergency Department X-Ray: My interpretation is Chest x-ray image reviewed by me does not reveal pulmonary edema. Counseling: I had a detailed discussion with the patient and/or guardian regarding the historical points, exam findings, and any diagnostic results supporting the discharge/admit diagnosis, lab results, the need for outpatient follow up, to return to the emergency department if symptoms worsen or persist or if there are any questions or concerns that arise at home. Special discussion: I discussed with the patient/guardian in detail that at this point there is no indication for admission to the hospital. It is understood, however, that if the symptoms persist or worsen the patient needs to return immediately for re-evaluation. ED course: Discussed chest x-ray, EKG, lab with patient. BNP normal, chest x-ray without pulmonary edema, EKG without significant signs of ischemia. Patient to follow-up Dr. Lisa in 2 to 3 days. All questions were answered. Return precautions were discussed include worsening symptoms, or any other concerns.. 07/29 12:42 Order name: Basic Metabolic Panel; Complete Time: 13:44 ms3 07/29 12:42 Order name: CBC with Diff; Complete Time: 13:44 ms3 07/29 12:42 Order name: Magnesium; Complete Time: 13:44 ms3 07/29 12:42 Order name: NT PRO-BNP; Complete Time: 13:44 ms3 07/29 12:42 Order name: PT-INR; Complete Time: 13:44 ms3 07/29 12:42 Order name: Troponin HS; Complete Time: 13:44 ms3 07/29 12:42 Order name: XRAY Chest (1 view); Complete Time: 13:44 ms3 07/29 12:42 Order name: Cardiac monitoring; Complete Time: 13:23 ms3 07/29 12:42 Order name: EKG - Nurse/Tech; Complete Time: 13:23 ms3 07/29 12:42 Order name: IV Saline Lock; Complete Time: 13:17 ms3 07/29 12:42 Order name: Labs collected and sent; Complete Time: 13:17 ms3 07/29 12:42 Order name: O2 Per Protocol; Complete Time: 13:23 ms3 07/29 12:42 Order name: O2 Sat Monitoring; Complete Time: 13:23 ms3 EC:51 Rate is 60 beats/min. Rhythm is regular. QRS [place] is Normal. LA interval is prolonged. ms3 QRS interval is normal. Clinical impression: 1st degree heart block. Interpreted by me. Reviewed by me. Administered Medications: No medications were administered Disposition Summary: 07/29/25 14:12 Discharge Ordered Notes: Location: Home ms3 Condition: Stable ms3 Diagnosis - Shortness of breath ms3 Followup: ms3 - With: Surinder Lisa MD - When: 2 - 3 days - Reason: Recheck today's complaints Discharge Instructions: - Discharge Summary Sheet ms3 - Shortness of Breath, Adult ms3 Forms: - Medication Reconciliation Form ms3 - Antibiotic Education ms3 - Prescription Opioid Use ms3 - Patient Portal Instructions ms3 - Leadership Thank You Letter ms3 Signatures: Dispatcher [employer] Lara Rick, RN RN ll1 Butch Sharma DO DO ms3 Alex Nichols Jr, RN RN nh2 Corrections: (The following items were deleted from the chart) 12:42 12:42 BASIC METABOLIC PANEL+C.LAB.BRZ ordered. EDMS EDMS 12:42 12:42 CBC+H.LAB.BRZ ordered. EDMS EDMS 12:42 12:42 MAGNESIUM+C.LAB.BRZ ordered. EDMS EDMS 12:42 12:42 PROBNP+C.LAB.BRZ ordered. EDMS EDMS 12:42 12:42 PROTIME (+INR)+COAG.LAB.BRZ ordered. EDMS EDMS 12:42 12:42 Troponin High Sensitivity+C.LAB.BRZ ordered. EDMS EDMS 12:42 12:42 Chest Single View+RAD.RAD.BRZ ordered. EDMS EDMS
[2025-07-29 15:09] VITALS: TEMP 98.4
[2025-07-29 15:10] VITALS: O2SAT 95
[2025-07-29 15:12] VITALS: BP 107/57
== END 2025-07-29 15:01 | disposition home or self-care (01) ==
LOC: ER 12:11
DX: R06.02 Shortness of breath (principal); R42 Dizziness and giddiness; R53.1 Weakness; I10 Essential (primary) hypertension; E11.9 Type 2 diabetes mellitus without complications
CPT/HCPCS: 36415; 71045; 80048; 83735; 83880; 84484; 85025; 85610; 93005; 99284